=== PATIENT | female | born 1965 | race Caucasian/White ===

== ENCOUNTER 2024-02-21 08:00 | Emergency (ER) | payer MEDICARE, MEDICAID, SELFPAY ==
[2024-02-21 08:12] VITALS: BP 143/79; PULSE 57; RESP 17; TEMP 36.6; O2SAT 97; BMI 23.3
--- NOTE | 2024-02-21 08:28 | PD.EDWOUND ---
ED Wound/Laceration-RME/HPI General Chief Complaint: Wound/Laceration Stated Complaint: CHIN LAC Time Seen by Provider: 02/21/24 08:04 Source: patient Arrival date/time: 02/21/24 08:00 59-year-old female presents to the emergency department accompanied with caregiver for a slip and fall during shower. According to the caregiver the patient had a fall due to the water and landed on her chin causing a small laceration mid chin Related Data Home Medications ?Medication ?Instructions ?Recorded ?Confirmed divalproex 500 mg tablet,delayed 1,000 mg PO QDAY 09/15/18 08/11/20 release clozapine 200 mg tablet 200 mg PO QDAY 07/29/19 08/11/20 linaclotide 145 mcg capsule 145 mcg PO QDAY 07/29/19 08/11/20 (Linzess) docusate sodium 250 mg capsule 250 mg PO QDAY 08/11/20 08/11/20 (Stool Softener) oxybutynin chloride 5 mg tablet 5 mg PO TID 08/11/20 08/11/20 polyethylene glycol 3350 17 17 g PO QDAY 08/11/20 08/11/20 gram/dose oral powder Previous Rx's ?Medication ?Instructions ?Recorded acetaminophen 325 mg tablet (Mapap 650 mg (2 x 325 mg) PO Q4HR PRN 08/04/19 (acetaminophen)) Mild pain or fever > 101F #10 tabs Allergies Allergy/AdvReac Type Severity Reaction Status Date / Time No Known Allergies Allergy Verified 08/11/20 10:49 Review of Systems Review of Systems Systems Reviewed: All systems reviewed, normal except as documented Narrative Review of Systems: Gen: No fever, no chills, no weight loss EYES: No discharge, no visual changes, no pain HEENT: No ear pain, no congestion, no sore throat PULM: No shortness of breath, no cough, no congestion CV: No chest pain, no dyspnea on exertion, no palpitations GI: No nausea, no vomiting, no diarrhea, no pain, no constipation : No frequency, no urgency,? no dysuria Musc/skel: No joint pain, no back pain Skin: +laceration Psyc: No hallucinations, no depression Heme/Lymph: No easy bleeding or bruising tendencies Neuro: No weakness, no headache ED Exam Narrative Physical exam: GENERAL APPEARANCE: Well hydrated, well nourished, in no acute distress. VITALS: All vitals were reviewed and the pulse ox is 97% on room air which is normal according to my interpretation. HEENT: Normocephalic,+ 1 cm laceration to mid chin.EOMI, EACs are patent. There is no bulge or retraction. Throat without erythema or exudate. Moist oromucosa. No jaundice NECK: Supple, no JVD or bruits. CARDIOVASCULAR: Heart regular without S3-S4 or murmur. No rubs or gallops. LUNGS/CHEST: Clear to auscultation bilaterally. No rales, rhonchi, or wheezing. Normal inspection. ABDOMEN: Soft, nontender, with normal bowel sounds. No pulsatile masses. No rebound, rigidity, or guarding. No incarcerated hernia. Normal inspection and palpation. EXTREMITIES: Normal inspection and palpation. No edema, clubbing, or cyanosis. Intact CSM SKIN: Warm and dry without rashes. Normal inspection. MUSCULOSKELETAL: Normal inspection. No gross deformity, full ROM all extremities NEURO: Awake. Cranial nerves II through XII grossly intact. There are no other motor or sensory deficits noted. Course Quality Measures none Orders Category Date Time Status Set Up Suture Tray STAT Care 02/21/24 08:27 Active Wound Care NOW Care 02/21/24 08:27 Active Lidocaine 1% 20 ml [Xylocaine 1% 20 ML] Med 02/21/24 08:27 Discontinued 10 ml INFL X1 ONE Vital Signs Vital signs: Vital Signs Temperature 97.8 F 02/21/24 08:12 Pulse Rate 57 L 02/21/24 08:12 Respiratory Rate 17 02/21/24 08:12 Blood Pressure 143/79 H 02/21/24 08:12 Pulse Oximetry (%) 97 02/21/24 08:12 Oxygen Delivery Method Room Air 02/21/24 08:12 Procedures -ED Laceration Laceration 1: Site: face and other (chin) Size (cm): 1 Description: linear Depth: simple, single layer Local Anesthetic: lidocaine 1% Amount of anesthesia used (mL): 5 Pre-repair: irrigated extensively and deep structures intact Skin layer closed with: vicryl Size (cm): 4-0 Number of sutures: 3 Technique: simple, interrupted Wound / Laceration MDM Narrative MDM Narrative:: Patient's wounds cleaned x-rays. And repaired with 3 sutures patient tolerated his procedure well. Patient was appropriate normal mentation according to the caregiver. No further evaluation for CTs or x-ray patient acting normal. No syncope no head pain no neck pain. 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 Interpretation Summary: Not applicable Medications / Prescriptions Medications or Prescriptions considered but not ordered:: not applicable Medication administrations:: Medication Administration History Discontinued Medications Lidocaine HCl (Lidocaine Hcl 1% 20 Ml Vial) 10 ml INFL X1 ONE Stop: 02/21/24 08:28 Last Admin: 02/21/24 09:21 Dose: 10 ml Documented By: VG All medications administered and effective Consultations Consultation(s) initiated? (list below): No Diagnosis Wound Differential Diagnosis: laceration, abscess, abrasion and avulsion of skin Most likely diagnosis given after review of the tests above:: Chin laceration Admission Indicated Admission indicated?: not indicated Admission Request Was there a request for admission?: No Disposition Plan Disposition Plan: Discharge Discharge Attestation Discharge Attestation: The patient and all family members were given an opportunity to ask questions and understood the discharge instructions. Discharge instructions specifically effects, indications for sooner follow up or return to the emergency department, and the expected course of current diagnosis. Patient condition: Stable Discharge Plan Plan Patient Disposition: HOME (Self Care) Patient condition on transfer: Stable Prescriptions/Referrals Prescriptions/Med Rec: No Action divalproex 500 mg tablet,delayed release (DR/EC) 1,000 mg PO QDAY clozapine 200 mg Tablet 200 mg PO QDAY Linzess 145 mcg Capsule 145 mcg PO QDAY acetaminophen [Mapap (acetaminophen)] 325 mg Tablet 650 mg PO Q4HR PRN (Reason: Mild pain or fever > 101F) Qty: 10 0RF polyethylene glycol 3350 17 gram/dose powder 17 g PO QDAY docusate sodium [Stool Softener] 250 mg capsule 250 mg PO QDAY oxybutynin chloride 5 mg tablet 5 mg PO TID Problem List Clinical Impression: Contusion, Fall from slip, trip, or stumble, Chin laceration Patient/Caregiver Discharge Instructions Discharge Activity: activity as tolerated Education Materials: Preventing Falls: Staying Active, ED Laceration, Chin, Suture or Tape Additional Instructions: Please follow up with Primary Doctor in 7-10 day for suture removal. Please return to ER if theres is any sign of infection. Please keep wound clean and dry. Print Language: Turkish Stand Alone Forms: Bianca Award Info., Work/School Release, Patient Portal Info Letter PA/PROGRAM WRITER Supervising Physician PA/PROGRAM WRITER Supervising Physician: Dr Kaye
[2024-02-21] MEDS: LIDOCAINE HCL 1% 20 ML VIAL 10 ML INFL (09:21)
== END 2024-02-21 09:46 | disposition home or self-care (01) ==
LOC: SERX 09:52
PROVIDERS: Emergency Provider Emergency Medicine
DX: S01.81XA Laceration without foreign body of other part of head, initial encounter (principal); W01.0XXA Fall on same level from slipping, tripping and stumbling without subsequent striking against object, initial encounter
CPT/HCPCS: 12011; 99283; J3490

== ENCOUNTER 2024-05-26 11:26 | Emergency (ER) | payer MEDICARE, MEDICAID, SELFPAY ==
[2024-05-26 11:27] VITALS: BMI 26.6
--- NOTE | 2024-05-26 11:44 | XR_ITS ---
Examination: CT brain head without contrast. 2-D sagittal coronal reconstructions Date and time of exam:May 26, 2024 1224 hrs. Indications: Patient fell today with injury to the head, head pain CTDI: vol (mGy):40.7 DLP: (mGycm):804 Technique: Multiple CT axial sections of the brain have been obtained, 5 mm slice thickness. Contrast has not been administered. 2-D sagittal, coronal reconstructions have been obtained Low dose protocols were performed. One or more of the following dose reduction techniques were used; automated exposure control, adjustment of the mA and/or KV according to patient size, use of iterative reconstruction technique. Findings: No significant ventricular enlargement. Right frontal scalp hematoma Intra-axial or extra-axial hemorrhage density is not seen. No mass effect or midline shift Basal cisterns are not remarkable. Fourth ventricle is midline. Cranial vault intact. Impression: Negative for acute hemorrhage, mass effect or midline shift
[2024-05-26 11:58] VITALS: BP 135/74; PULSE 58; RESP 16; TEMP 36.7; O2SAT 97
--- NOTE | 2024-05-26 13:58 | PD.EDFALL ---
ED Fall Injury RME/HPI General Chief Complaint: Fall Stated Complaint: GLF; HEMATOMA R FOREHEAD; NO BT Time Seen by Provider: 05/26/24 11:32 Arrival date/time: 05/26/24 11:26 59-year-old female developmentally delayed presents emergency department today caregiver reports that the patient was in the bathroom and fell hitting the right side of her head patient obtained a hematoma to the right side of the forehead. Per caregiver patient is acting appropriately Limitations: no limitations Related Data Home Medications ?Medication ?Instructions ?Recorded ?Confirmed divalproex 500 mg tablet,delayed 1,000 mg PO QDAY 09/15/18 08/11/20 release clozapine 200 mg tablet 200 mg PO QDAY 07/29/19 08/11/20 linaclotide 145 mcg capsule 145 mcg PO QDAY 07/29/19 08/11/20 (Linzess) docusate sodium 250 mg capsule 250 mg PO QDAY 08/11/20 08/11/20 (Stool Softener) oxybutynin chloride 5 mg tablet 5 mg PO TID 08/11/20 08/11/20 polyethylene glycol 3350 17 17 g PO QDAY 08/11/20 08/11/20 gram/dose oral powder Previous Rx's ?Medication ?Instructions ?Recorded acetaminophen 325 mg tablet (Mapap 650 mg (2 x 325 mg) PO Q4HR PRN 08/04/19 (acetaminophen)) Mild pain or fever > 101F #10 tabs Allergies Allergy/AdvReac Type Severity Reaction Status Date / Time No Known Allergies Allergy Verified 05/26/24 11:29 Review of Systems Review of Systems Systems Reviewed: All systems reviewed, normal except as documented Constitutional Constitutional: Reports system reviewed and no additional complaints, except as documented, Denies fever(s) and Denies headache(s) Eyes Eyes: Reports system reviewed and no additional complaints, except as documented and Denies blurry vision ENT Ears, Nose, Mouth, and Throat: Reports system reviewed and no additional complaints, except as documented, Denies headache(s), Denies nasal congestion and Denies nasal discharge Cardiovascular Cardiovascular: Reports system reviewed and no additional complaints, except as documented, Denies chest pain and Denies dyspnea Respiratory Respiratory: Reports system reviewed and no additional complaints, except as documented, Denies chest congestion, Denies cough and Denies dyspnea Gastrointestinal Gastrointestinal: Reports system reviewed and no additional complaints, except as documented and Denies abdominal pain Integumentary/Breasts Skin/Breast: Reports system reviewed and no additional complaints, except as documented and Denies rash Neurologic Neurologic: Reports system reviewed and no additional complaints, except as documented, Reports as per HPI and Denies headache(s) Past Medical History Past Medical History NEUROLOGIC: Positive Neurological Disorders and Head Trauma; Negative Seizures CARDIAC: Negative Cardiac Disorders or Congestive Heart Failure RESPIRATORY: Negative Chronic Obstructive Pulmonary Disease (COPD) GASTROINTESTINAL: Positive Gastrointestinal Disorders GENITOURINARY: Negative Genitourinary Disorders or Renal Disease MUSCULOSKELETAL: Positive Musculoskeletal Disorders and Fractures ENT: Positive Head Trauma ENDOCRINE: Negative Endocrine Disorders, Diabetes Mellitus Type 1 or Diabetes Mellitus Type 2 HEMATOLOGIC: Negative Blood Disorders PSYCHO/SOCIAL: Positive Schizophrenia and Behavior Problems OTHER HISTORY: Positive Developmental Delay and Falls; Negative Hospitalization, Autoimmune Disease, Down Syndrome, Blood Transfusions, Anesthesia Reactions or Cancer Surgical History SURGICAL: Positive Open Reduction Internal Fixation and Hysterectomy Social History SMOKING STATUS: Never smoker SUBSTANCE USE: does not use ED Exam General Limitations: Present no limitations General appearance: Present alert and in no apparent distress Expanded Head Exam Head image:  1. Hematoma forehead Eye Eye exam: Present normal appearance, PERRL and EOMI ENT ENT exam: Present normal exam, normal oropharynx and mucous membranes moist Neck Neck exam: Present normal inspection, full ROM and trachea midline Chest Chest inspection: Present normal inspection and symmetric chest wall rise Respiratory Respiratory exam: Present normal lung sounds bilaterally Cardiovascular Cardiovascular exam: Present regular rate, normal rhythm and normal heart sounds Abdominal Exam Abdominal exam: Present soft and normal bowel sounds Extremities Exam Extremities exam: Present normal inspection and full ROM Back Exam Back exam: Present normal inspection and full ROM Neurological Exam Neurological exam: Present alert, oriented X3 and CN II-XII intact Psychiatric Psychiatric exam: Present normal affect and normal mood Skin Skin exam: Present warm, dry, intact and normal color Course Quality Measures none Orders Category Date Time Status CT head/brain wo con Stat Exams 05/26/24 11:44 Completed Vital Signs Vital signs: Vital Signs Temperature 98.1 F 05/26/24 11:58 Pulse Rate 58 L 05/26/24 11:58 Respiratory Rate 16 05/26/24 11:58 Blood Pressure 135/74 H 05/26/24 11:58 Pulse Oximetry (%) 97 05/26/24 11:58 Oxygen Delivery Method Room Air 02/17/25 11:58 O2 saturation 97% room air within normal limits Fall MDM Narrative MDM Narrative:: 59-year-old female developmentally delayed presents emergency department today caregiver reports that the patient was in the bathroom and fell hitting the right side of her head patient obtained a hematoma to the right side of the forehead. Per caregiver patient is acting appropriately On exam patient well-appearing patient does not appear ill or toxic in no acute distress patient walks with steady gait On exam patient does have large hematoma to the right side of her forehead CT scan of the head obtained no acute emergent findings noted Patient discharged home in no distress to follow-up with primary care doctor in the next 24 to 48 hours and for any worsening symptoms to return to the ER immediately Patient data External records reviewed:: [facility] previous records Clinical information provided by:: health advocate Social determinants that could affect healthcare access:: none Patient has the following chronic illnesses:: Developmental delay How is presenting disease/condition affected by chronic disease/condition?: exacerbated by Evaluation data The following diagnostics were reviewed and interpreted by me:: radiology exam(s) Lab and/or radiology exams considered but not ordered:: Radiology obtain Interpretation Summary: Reviewed by me Medications / Prescriptions Medications or Prescriptions considered but not ordered:: No meds Medication administrations:: No meds Consultations Consultation(s) initiated? (list below): No Diagnosis Fall Differential Diagnosis: syncope, dislocation of shoulder region, concussion with loss of consciousness and concussion without loss of consciousness Most likely diagnosis given after review of the tests above:: Closed head injury Admission Indicated Admission indicated?: not indicated Admission Request Was there a request for admission?: No Disposition Plan Disposition Plan: Discharge Discharge Attestation Discharge Attestation: The patient and all family members were given an opportunity to ask questions and understood the discharge instructions. Discharge instructions specifically effects, indications for sooner follow up or return to the emergency department, and the expected course of current diagnosis. Patient condition: Stable Discharge Plan Plan Patient Disposition: HOME (Self Care) Disposition Comment: Stable Prescriptions/Referrals Prescriptions/Med Rec: No Action divalproex 500 mg tablet,delayed release (DR/EC) 1,000 mg PO QDAY clozapine 200 mg Tablet 200 mg PO QDAY Linzess 145 mcg Capsule 145 mcg PO QDAY acetaminophen [Mapap (acetaminophen)] 325 mg Tablet 650 mg PO Q4HR PRN (Reason: Mild pain or fever > 101F) Qty: 10 0RF polyethylene glycol 3350 17 gram/dose powder 17 g PO QDAY docusate sodium [Stool Softener] 250 mg capsule 250 mg PO QDAY oxybutynin chloride 5 mg tablet 5 mg PO TID Referrals: Segun Bray MD [Primary Care Provider] - In 1 week Problem List Clinical Impression: CHI (closed head injury) Patient/Caregiver Discharge Instructions Additional Instructions: Please follow up with your primary care doctor in the next 24-48hrs for any worsening symptoms return here immediately Print Language: Palauan Stand Alone Forms: Bianca Award Info., Patient Portal Info Letter PA/PMP CERTIFIED PROJECT MANAGER Supervising Physician PA/PMP CERTIFIED PROJECT MANAGER Supervising Physician: Dr Kaye
== END 2024-05-26 14:03 | disposition home or self-care (01) ==
PROVIDERS: Emergency Provider Emergency Medicine; PCP Family Medicine
DX: S00.83XA Contusion of other part of head, initial encounter (principal); W19.XXXA Unspecified fall, initial encounter; Y92.002 Bathroom of unspecified non-institutional (private) residence as the place of occurrence of the external cause
CPT/HCPCS: 70450; 99284

== ENCOUNTER → 2024-05-28 | Outpatient (CLI) | payer MEDICARE, MEDICAID, SELFPAY ==
[2024-05-28 16:30] LABS: Basophils % (Auto) 1 % (0-2.5); Eosinophils # (Auto) 0.1 Thou/mm3 (0.0-0.5); Eosinophils % (Auto) 1 % (0-10); Hematocrit 41.3 % (36.0-46.0); Hemoglobin 13.8 g/dL (12.0-16.0); Immature Granulocytes % (Auto) 0 % (0-0); Immature Granulocytes Auto 0.01 Thou/mm3 (0.00-0.00); Lymphocytes # (Auto) 2.2 Thou/mm3 (1.0-4.8); Lymphocytes % (Auto) 43 % (10-50); Mean Corpuscular HGB Conc 33.4 g/dl (31.0-37.0); Mean Corpuscular Hemoglobin 28.3 pg (25.0-35.0); Mean Corpuscular Volume 85 fL (80-100); Monocytes # (Auto) 0.4 Thou/mm3 (0.0-0.8); Monocytes % (Auto) 7 % (0-12); Neutrophils # (Auto) 2.5 Thou/mm3 (1.8-7.7); Neutrophils % (Auto) 49 % (37-80); Nucleated Red Blood Cell % 0 /100 WBC (0); Platelet Count 207 Thou/mm3 (140-440); RDW Standard Deviation 42.8 fL (36.4-46.3); Red Blood Count 4.87 Miln/mm3 (4.00-5.20); White Blood Count 5.2 Thou/mm3 (3.6-11.0)
[2024-05-28 16:50] LABS: Alanine Aminotransferase 11 U/L (10-49); Albumin, Serum 3.9 gm/dL (3.5-5.0); Albumin/Globulin Ratio 1.3 (1.2-2.2); Alkaline Phosphatase 92 U/L (46-116); Anion Gap 9 (7-16); Aspartate Amino Transferase 20 U/L (0-34); BUN/Creatinine Ratio 29 Ratio (12-20); Bilirubin,Total 0.4 mg/dL (0.3-1.2); Blood Urea Nitrogen 23 mg/dL (9-23); Calcium 9.1 mg/dL (8.3-10.6); Calcium (Corrected) 9.2 mg/dL (8.5-10.1); Carbon Dioxide 29.9 mMol/L (20.0-31.0); Chloride 90 mMol/L (98-107); Creatinine (Component) 0.8 mg/dL (0.6-1.3); Glucose 52 mg/dL (74-106); Osmolality,Calculated 259 (275-295); Potassium 4.6 mMol/L (3.4-5.1); Sodium 129 mMol/L (136-145); Total Protein 6.9 gm/dL (5.7-8.2); eGFR > 60 See Note
[2024-06-02 07:02] LABS: Valporic Acid (Depak)* 99.8 mg/L (50.0-100.0)
== END | disposition home or self-care (01) ==
LOC: SLDO 13:44
PROVIDERS: PCP Family Medicine; Referring Provider Family Medicine; Visit Provider Family Medicine
DX: F25.0 Schizoaffective disorder, bipolar type (principal)
CPT/HCPCS: 36415; 80053; 80164; 85025

== ENCOUNTER 2024-07-01 15:44 | Emergency (ER) | payer MEDICARE, MEDICAID, SELFPAY ==
[2024-07-01 15:50] VITALS: BP 165/84; PULSE 98; RESP 16; TEMP 36.7; O2SAT 100; BMI 18.3
--- NOTE | 2024-07-01 16:01 | XR_ITS ---
Examination: CT brain head without contrast. 2-D sagittal coronal reconstructions Date and time of exam:July 01, 2024 at 1713 hours Comparison May 26, 2024 INDICATIONS: Ground-level fall today with injury to head, head pain CTDI: vol (mGy):41.5 DLP: (mGycm):858 Technique: Multiple CT axial sections of the brain have been obtained, 5 mm slice thickness. Contrast has not been administered. 2-D sagittal, coronal reconstructions have been obtained Low dose protocols were performed. One or more of the following dose reduction techniques were used; automated exposure control, adjustment of the mA and/or KV according to patient size, use of iterative reconstruction technique. Findings: No significant ventricular enlargement. Intra-axial or extra-axial hemorrhage density is not seen. No mass effect or midline shift Basal cisterns are not remarkable. Fourth ventricle is midline. Cranial vault intact. Right frontal and right parietal scalp hematomas Impression: Negative for acute hemorrhage, mass effect or midline shift
--- NOTE | 2024-07-01 16:01 | XR_ITS ---
Examination: CT cervical spine without contrast 2-D sagittal reconstructions 2-D coronal reconstructions 3-D reconstructions. Exam date and time:July 01, 2024 1713 hours COMPARISON: February 01, 2024 INDICATIONS: Ground-level fall today with injury to the neck, neck pain CTDI:vol (mGy) 7.15 DLP: (mGycm) 139 Technique: Multiple 2 mm axial sections of the cervical spine have been obtained. The coronal and sagittal reconstructions have been obtained. 3-D reconstructions have been obtained. Low dose protocols were performed. One or more of the following dose reduction techniques were used; automated exposure control, adjustment of the mA and/or KV according to patient size, use of iterative reconstruction technique. Findings: Axial sections demonstrate intact base of the skull. C1 exhibit satisfactory relationship to the odontoid. No acute cervical vertebral body fracture seen. Alignment posterior spinous processes satisfactory. Impression: No acute cervical fracture.
--- NOTE | 2024-07-01 16:02 | PD.EDFALL ---
ED Fall Injury RME/HPI General Chief Complaint: Fall Stated Complaint: GROUND LEVEL FALL Time Seen by Provider: 07/01/24 16:01 Arrival date/time: 07/01/24 15:44 RME / HPI RME / HPI Narrative: DR. LOPEZ MAIN ED EVALUATION: 59 year old female with past medical history significant for developmental delay with GCS 14 baseline, schizophrenia, behavior problems, and a hysterectomy presents to the Emergency Department [facility] from [facility] with complaint of a ground-level fall prior to arrival. Patient cannot provide history but is bleeding from the right scalp area. EMS denies any loss of consciousness. EMS states that staff at [facility] also reported a previous fall but unknown when that took place. EMS deny any blood thinners. Related Data Home Medications ?Medication ?Instructions ?Recorded ?Confirmed divalproex 500 mg tablet,delayed 1,000 mg PO QDAY 09/15/18 08/11/20 release clozapine 200 mg tablet 200 mg PO QDAY 07/29/19 08/11/20 linaclotide 145 mcg capsule 145 mcg PO QDAY 07/29/19 08/11/20 (Linzess) docusate sodium 250 mg capsule 250 mg PO QDAY 08/11/20 08/11/20 (Stool Softener) oxybutynin chloride 5 mg tablet 5 mg PO TID 08/11/20 08/11/20 polyethylene glycol 3350 17 17 g PO QDAY 08/11/20 08/11/20 gram/dose oral powder Previous Rx's ?Medication ?Instructions ?Recorded acetaminophen 325 mg tablet (Mapap 650 mg (2 x 325 mg) PO Q4HR PRN 08/04/19 (acetaminophen)) Mild pain or fever > 101F #10 tabs Allergies Allergy/AdvReac Type Severity Reaction Status Date / Time No Known Allergies Allergy Verified 05/26/24 11:29 Review of Systems Review of Systems ROS Unobtainable: unobtainable due to medical condition Past Medical History Past Medical History NEUROLOGIC: Positive Neurological Disorders and Head Trauma GASTROINTESTINAL: Positive Gastrointestinal Disorders MUSCULOSKELETAL: Positive Musculoskeletal Disorders and Fractures ENT: Positive Head Trauma PSYCHO/SOCIAL: Positive Schizophrenia and Behavior Problems OTHER HISTORY: Positive Developmental Delay and Falls Surgical History SURGICAL: Positive Open Reduction Internal Fixation (right ankle) and Hysterectomy Social History SMOKING STATUS: Never smoker SUBSTANCE USE: does not use ALCOHOL: Never ED Exam Narrative Physical exam: GENERAL APPEARANCE: At baseline, GCS of 14 and cannot give any information, generally well-appearing. HEENT: Patient has a 3 cm right temporal-parietal laceration with active bleeding. Patient also had a right frontal contusion that is old, yellowish color. EOMI, clear conjunctiva, oropharynx clear. NECK: Supple without lymphadenopathy. No stiffness or restricted ROM. HEART: Normal rate and regular rhythm, normal S1/S1, no m/r/g LUNGS: CTAB, moving air well. No crackles or wheezes are heard. ABDOMEN: Soft, nontender, nondistended with good bowel sounds heard. BACK: No midline C/T/L spine pain or deformity, No CVAT, no obvious deformity. EXTREMITIES: Without cyanosis, clubbing or edema. MUSCULOSKELETAL: FROM of all major joints, no chest tenderness NEUROLOGICAL: At baseline, GCS of 14. Skin: Warm and dry without any rash. Course Quality Measures none Orders Category Date Time Status CT cervical spine wo con Stat Exams 07/01/24 16:[address] head/brain wo con Stat Exams 07/01/24 16:01 Completed Vital Signs Vital signs: Vital Signs Temperature 98.0 F 07/01/24 15:50 Pulse Rate 98 07/01/24 15:50 Respiratory Rate 16 07/01/24 15:50 Blood Pressure 165/84 H 07/01/24 15:50 Pulse Oximetry (%) 100 07/01/24 15:50 Oxygen Delivery Method Room Air 07/01/24 15:50 SpO2 100% on room air, patient is not hypoxic Fall MDM Narrative MDM Narrative:: Ms. Santos is a history of dementia presents from care home after he found down with head injury. She is not on blood thinners. She has a small laceration to her right parietal scalp that was amenable to ray. With the baseline dementia formal acute versus chronic neurologic deficits are limited therefore head CT and C-spine CT were done to assess for intracranial hemorrhage, fracture, which returned within normal limits. I reviewed the radiology interpretation and agree. Government Affairs Manager was here and notes that patient is at her baseline and was discharged in stable condition under the caretakers supervision Milana Alvarez am scribing for and in the presence of Dr. Lopez. Patient data External records reviewed:: EMS form Clinical information provided by:: EMS Social determinants that could affect healthcare access:: housing ([facility]) Patient has the following chronic illnesses:: developmental delay with GCS 14 baseline, schizophrenia, behavior problems, and a hysterectomy How is presenting disease/condition affected by chronic disease/condition?: uneffected by Evaluation data The following diagnostics were reviewed and interpreted by me:: radiology exam(s) Lab and/or radiology exams considered but not ordered:: none Interpretation Summary: As per narrative Medications / Prescriptions Medications or Prescriptions considered but not ordered:: none Medication administrations:: see above if any Consultations Consultation(s) initiated? (list below): No Diagnosis Fall Differential Diagnosis: concussion without loss of consciousness and other (scalp laceration, scalp contusion) Most likely diagnosis given after review of the tests above:: See below Admission Indicated Admission indicated?: not indicated Explain why admission is indicated or not indicated:: As per narrative Admission Request Was there a request for admission?: No Disposition Plan Disposition Plan: Discharge Discharge Attestation Discharge Attestation: The patient and facility executive officer were given an opportunity to ask questions and understood the discharge instructions. Discharge instructions specifically effects, indications for sooner follow up or return to the emergency department, and the expected course of current diagnosis. Patient condition: Stable Discharge Plan Plan Patient Disposition: HOME (Self Care) Prescriptions/Referrals Prescriptions/Med Rec: No Action divalproex 500 mg tablet,delayed release (DR/EC) 1,000 mg PO QDAY clozapine 200 mg Tablet 200 mg PO QDAY Linzess 145 mcg Capsule 145 mcg PO QDAY acetaminophen [Mapap (acetaminophen)] 325 mg Tablet 650 mg PO Q4HR PRN (Reason: Mild pain or fever > 101F) Qty: 10 0RF polyethylene glycol 3350 17 gram/dose powder 17 g PO QDAY docusate sodium [Stool Softener] 250 mg capsule 250 mg PO QDAY oxybutynin chloride 5 mg tablet 5 mg PO TID Problem List Clinical Impression: Closed head injury, Laceration of scalp Patient/Caregiver Discharge Instructions Education Materials: ED Head Injury (Adult), ED Laceration Scalp Sutures or ... Additional Instructions: Follow-up with your facility provider as needed. You can return to the emergency department sooner symptoms worsen or if he notes any new, concerning issues. Print Language: Yi Stand Alone Forms: Bianca Award Info., Work/School Release, Patient Portal Info Letter
[2024-07-01 16:11] VITALS: PULSE 62; RESP 16; O2SAT 98
--- NOTE | 2024-07-01 16:59 | PC.NURSE ---
Patient not participating in nursing assessments
[2024-07-01 17:17] VITALS: PULSE 86; RESP 19; O2SAT 97
[2024-07-01 18:15] VITALS: BP 159/80; PULSE 56; RESP 18; TEMP 36.6; O2SAT 100
== END 2024-07-01 19:52 | disposition home or self-care (01) ==
LOC: SERX 17:56
PROVIDERS: Emergency Provider Emergency Medicine; PCP Family Medicine
DX: S01.01XA Laceration without foreign body of scalp, initial encounter (principal); W18.30XA Fall on same level, unspecified, initial encounter; F20.9 Schizophrenia, unspecified; F03.90 Unspecified dementia, unspecified severity, without behavioral disturbance, psychotic disturbance, mood disturbance, and anxiety; M54.2 Cervicalgia
CPT/HCPCS: 70450; 72125; 99284

== ENCOUNTER 2024-07-23 20:38 | Inpatient (IN) | payer MEDICARE, MEDICAID, SELFPAY ==
[2024-07-23] VITALS (34 sets, daily range): BP systolic 58–193; BP diastolic 42–143; PULSE 54–93; RESP 14–24; TEMP 36.2; O2SAT 76–100; BMI 22.3
--- NOTE | 2024-07-23 20:43 | PC.NURSE ---
stroke consult Case # [id number]
[2024-07-23] MEDS: SUCCINYLCHOLINE INJ 20 MG/ML VIAL 10 ML 100 MG IV (20:48)
[2024-07-23] MEDS: ETOMIDATE INJ 2 MG/ML VIAL 10 ML 20 MG IVP (20:48)
--- NOTE | 2024-07-23 20:49 | PD.EDAMS ---
Altered Mental Status RME/HPI General Chief Complaint: Altered Mental Status Stated Complaint: ALTERED UNCONCIOUS Time Seen by Provider: 07/23/24 20:50 Arrival date/time: 07/23/24 20:38 RME / HPI RME / HPI narrative: This section includes all my notes and documentations, including HPI, PE, and ED course. Abbe Kent MD HPI: 59yo female with a history of schizoeffective disorder, ADHD, mild retardation BIBA from [facility] Home presents to the ED for a chief complaint of AMS. Patient was seen by me immediately upon arrival at 2036. Stroke alert initiated at 2039. Patient was intubated at 2047. Per EMS, patient's LKWT was at 1900, reporting the patient started having a headache and was dizzy. EMS states the patient started becoming altered en route and was saturating at 76% on room air, so they started bagging her. Blood sugar en route was 172. Blood pressure en route was 205/143. Unable to obtain history from the patient due to decreased mental status. ROS: Unobtainable from the patient due to current clinical condition. Physical Exam: General: Patient is not responsive. Eyes don't open. No verbal sound. Equivocal localizing to pain. High BP noted. Eyes: Conjunctivae and lids clear. PERRL. EOMI. ENT: No signs of head trauma. Neck: No tenderness. Heart: RRR. Lungs: Tachypnea noted. Mildly decreased air movement with bilateral rails. Abdomen: Soft. Skin: Warm and dry. Neuro: GCS 7. I reviewed all diagnostic test results. My interpretation of the EKG is sinus rhythm with no acute ST?T changes. My interpretation of the chest x-ray is bilateral infiltrates. My review of the CT head report is NAD. My review of the head/neck CTA report is NAD. Blood tests and urine tests remarkable for WBC 13.3, Na 125. At this point, diagnoses include AMS, pneumonia, hyponatremia. Due to AMS and low GCS, made decision to intubate the patient, see procedure note. Used etomidate and succinylcholine on rocuronium and propofol drip. Treatment here also included labetalol, Zofran, NS, and vancomycin. I discussed the case with our ICU team.? About the presentation and exam and diagnostics and treatments here.? And need of further care in the hospital.? Will accept the patient. Abbe Kent MD Related Data Home Medications ?Medication ?Instructions ?Recorded ?Confirmed divalproex 500 mg tablet,delayed 1,000 mg PO QDAY 09/15/18 08/11/20 release clozapine 200 mg tablet 200 mg PO QDAY 07/29/19 08/11/20 linaclotide 145 mcg capsule 145 mcg PO QDAY 07/29/19 08/11/20 (Linzess) docusate sodium 250 mg capsule 250 mg PO QDAY 08/11/20 08/11/20 (Stool Softener) oxybutynin chloride 5 mg tablet 5 mg PO TID 08/11/20 08/11/20 polyethylene glycol 3350 17 17 g PO QDAY 08/11/20 08/11/20 gram/dose oral powder Previous Rx's ?Medication ?Instructions ?Recorded acetaminophen 325 mg tablet (Mapap 650 mg (2 x 325 mg) PO Q4HR PRN 08/04/19 (acetaminophen)) Mild pain or fever > 101F #10 tabs Allergies Allergy/AdvReac Type Severity Reaction Status Date / Time No Known Allergies Allergy Verified 05/26/24 11:29 Review of Systems Review of Systems ROS Unobtainable: unobtainable due to mental status and unobtainable due to medical condition Past Medical History Past Medical History NEUROLOGIC: Positive Neurological Disorders and Head Trauma; Negative Seizures CARDIAC: Negative Cardiac Disorders or Congestive Heart Failure RESPIRATORY: Negative Chronic Obstructive Pulmonary Disease (COPD) GASTROINTESTINAL: Positive Gastrointestinal Disorders GENITOURINARY: Negative Genitourinary Disorders or Renal Disease MUSCULOSKELETAL: Positive Musculoskeletal Disorders and Fractures ENT: Positive Head Trauma ENDOCRINE: Negative Endocrine Disorders, Diabetes Mellitus Type 1 or Diabetes Mellitus Type 2 HEMATOLOGIC: Negative Blood Disorders PSYCHO/SOCIAL: Positive Schizophrenia, Behavior Problems (schizoaffective disorder and ADHD) and Attention Deficit Hyperactivity Disorder OTHER HISTORY: Positive Developmental Delay and Falls; Negative Hospitalization, Autoimmune Disease, Down Syndrome, Blood Transfusions, Anesthesia Reactions or Cancer Surgical History SURGICAL: Positive Open Reduction Internal Fixation and Hysterectomy Social History SMOKING STATUS: Never smoker SUBSTANCE USE: does not use ED Exam Narrative Physical exam: As noted in HPI. Course Course Course Narrative: CXR is ordered for post intubation. Quality Measures none Orders Category Date Time Status Bedside Blood Glucose NOW Care 07/23/24 20:52 Completed Bedside COVID-19 Antigen Test NOW Care 07/23/24 20:50 Completed Bedside Influenza A&B Antigen Test NOW Care 07/23/24 20:50 Completed COVID-19 Screening Questionnaire NOW Care 07/23/24 22:58 Active Stepdown Nurse NOW Care 07/23/24 20:52 Completed Continuous Pulse Oximetry NOW Care 07/23/24 20:52 Completed Decision to Admit X1 Care 07/23/24 22:58 Completed EKG (ED ONLY) *Do not use* NOW Care 07/23/24 20:51 Completed EKG (ED ONLY) *Do not use* NOW Care 07/23/24 20:52 Completed Fingerstick [Bedside Blood Glucose] NOW Care 07/23/24 20:43 Active Sepulveda to [place] Routine Care 07/23/24 20:50 Ordered Insert IV NOW Care 07/23/24 20:52 Active Insert NG / OG tube NOW Care 07/23/24 20:50 Active Intubation NOW Care 07/23/24 20:45 Completed NIH Stroke Scale now Care 07/23/24 20:52 Active NPO NOW Care 07/23/24 20:52 Active Nurse Swallow Screen x1 Care 07/23/24 20:52 Active Saline [Insert IV] NOW Care 07/23/24 20:50 Active Consult to Neurology / Tele-Neurology Routine Cons 07/23/24 20:[address] angio stroke protocol Stat Exams 07/23/24 20:[address] stroke protocol Stat Exams 07/23/24 20:52 Completed EKG (ED Only) Stat Exams 07/23/24 20:51 Ordered EKG (ED Only) Stat Exams 07/23/24 20:52 Ordered XR abdomen 1V Stat Exams 07/23/24 22:49 Completed XR chest 1V post procedure Stat Exams 07/23/24 20:52 Completed XR chest 1V post procedure Stat Exams 07/23/24 22:47 Completed Acetaminophen Stat Lab 07/23/24 20:45 Completed Alcohol, Blood Medical Stat Lab 07/23/24 20:45 Completed Ammonia Stat Lab 07/23/24 22:48 Completed Arterial Blood Gas Stat Lab 07/23/24 23:07 Completed B-Type Natriuretic Peptide Stat Lab 07/23/24 20:45 Completed Blood Culture (Lab) Stat Lab 07/23/24 20:45 Received CBC Stat Lab 07/23/24 20:45 Completed CK [Creatine Kinase] Stat Lab 07/23/24 20:45 Completed CRP [C-Reactive Protein] Stat Lab 07/23/24 20:45 Completed Comprehensive Metabolic Panel Stat Lab 07/23/24 20:45 Completed D-Dimer Stat Lab 07/23/24 20:45 Completed Drug Screen,Urine Stat Lab 07/23/24 21:45 Completed ESR [Sed Rate (ESR)] Stat Lab 07/23/24 20:45 Completed Free T4 (Free Thyroxine) Stat Lab 07/23/24 20:45 Completed Lactate (Lactic Acid) Stat Lab 07/23/24 20:45 Completed Magnesium Stat Lab 07/23/24 20:45 Completed Partial Thromboplastin Time Stat Lab 07/23/24 20:45 Completed Path Review Blood Smear Stat Lab 07/23/24 20:45 Completed Procalcitonin Stat Lab 07/23/24 20:45 Completed Prothrombin Time with INR Stat Lab 07/23/24 20:45 Completed Sputum Culture and Gram Stain Stat Lab 07/23/24 21:37 Ordered TSH [Thyroid Stimulating Hormone] Stat Lab 07/23/24 20:45 Completed Troponin I Stat Lab 07/23/24 20:45 Completed Urinalysis Stat Lab 07/23/24 21:45 Completed Urine Culture Stat Lab 07/23/24 21:45 Received Valporic Acid (Depak)* Stat Lab 07/23/24 22:24 Ordered Cefepime Inj [Maxipime Inj] 2 gm Med 07/23/24 22:06 Discontinued SODIUM CHLORIDE 0.9% (Popper) [Ns 0.9% (P)] 50 ml IV X1 Etomidate Inj [Amidate Inj] Med 07/23/24 20:41 Discontinued 20 mg .ROUTE .STK-MED ONE Etomidate Inj [Amidate Inj] Med 07/23/24 20:50 Discontinued 20 mg IVP X1 ONE Labetalol IV [Trandate IV] Med 07/23/24 20:52 Active 10 mg IV Q15M PRN Labetalol IV [Trandate IV] Med 07/23/24 20:44 Discontinued 10 mg IVP X1 ONE Labetalol IV [Trandate IV] Med 07/23/24 20:46 Discontinued 100 mg .ROUTE .STK-MED ONE Ondansetron Inj [Zofran Inj] Med 07/23/24 20:52 Discontinued 4 mg IV Q4HR PRN Propofol 1,000 mg Ivpb [Diprivan Ivpb] Med 07/23/24 20:51 Discontinued 1,000 mg in 100 ml IV 5 mcg/kg/min Rocuronium Inj [Zemuron Inj] Med 07/23/24 20:50 Discontinued 50 mg IVP X1 ONE Sodium Chloride 0.9% 1000 ml [Ns] 1,000 ml Med 07/23/24 21:20 Discontinued IV 999 mls/hr Sodium Chloride 0.9% 1000 ml [Ns] 1,000 ml Med 07/23/24 21:00 Active IV Q10H Sodium Chloride Rt Amber 10% [NS Rt Amber 10%] Med 07/23/24 21:36 Discontinued 5 ml INH X1 ONE Succinylcholine Inj [Anectine Inj] Med 07/23/24 20:50 Discontinued 100 mg IV X1 ONE Succinylcholine Inj [Anectine Inj] Med 07/23/24 20:42 Discontinued 200 mg .ROUTE .STK-MED ONE Vancomycin Inj 1,000 mg Med 07/23/24 22:15 Discontinued Sodium Chloride 0.9% 250 ml [Ns] 250 ml IV X1 Mechanical [Volume Ventilator] Stat RT 07/23/24 Active Oxygen Delivery NOW RT 07/23/24 20:52 Active Sputum Induction PRN RT 07/23/24 21:45 Ordered Vital Signs Vital signs: Vital Signs Temperature 97.2 F 07/23/24 20:40 Pulse Rate 93 07/23/24 20:40 Respiratory Rate 21 H 07/23/24 20:40 Blood Pressure 193/130 H 07/23/24 20:40 Pulse Oximetry (%) 99 07/23/24 20:40 Oxygen Delivery Method Ambu-Bag 07/23/24 20:40 Procedures -ED Intubation Time out performed: Yes (performed emergently) sedative: Etomidate Mg Given: 20 paralytic: Succinylcholine Mg Given: 100 Laryngoscope: Luc ET Tube Size: 7.5 ET Tube Uncuffed: No Tube Secured Depth (cm): 22 Tube Secured Location: teeth Tube Placement Confirmation: visualized tube passing through cords, equal breath sounds bilaterally, no breath sounds over epigastrium and confirmation by capnometry Patient Tolerated Procedure: well and no complications Intubation Complications: none Altered Mental Status MDM Narrative MDM Narrative:: Scribe Attestation: 07/23/24 Taylor Borrero am scribing for and in the presence of Dr. Kent. Patient data External records reviewed:: [facility] previous records (Per chart review, patient was seen here on 07/01/24 for a closed head injury.) Clinical information provided by:: EMS Social determinants that could affect healthcare access:: none Patient has the following chronic illnesses:: schizoeffective disorder, ADHD, mild retardation How is presenting disease/condition affected by chronic disease/condition?: uneffected by Evaluation data The following diagnostics were reviewed and interpreted by me:: lab results, radiology exam(s) and EKG tracing(s) Lab and/or radiology exams considered but not ordered:: none Interpretation Summary: AMS, pneumonia, hyponatremia Medications / Prescriptions Medications or Prescriptions considered but not ordered:: none Medication administrations:: Medication Administration History Acetaminophen (Acetaminophen Supp 650 Mg Supp) 650 mg IA Q6HR PRN PRN Reason: [id number] Stop: 08/22/24 23:35 Aspirin (Aspirin 81 Mg Chew) 81 mg PO QDAY [facility] Stop: 08/23/24 08:59 Famotidine (Famotidine Inj 10 Mg/Ml Vial 2 Ml) 20 mg IVP Q12HR [facility] Stop: 08/23/24 08:59 Heparin Sodium (Porcine) (Heparin Sod Inj 5000 Unit/Ml Vial) 5,000 unit SC Q8HR TANYA Stop: 08/07/24 05:59 Sodium Chloride (Ns) 1,000 mls @ 100 mls/hr IV Q10H [facility] Stop: 08/22/24 20:59 Last Admin: 07/23/24 21:55 Dose: 100 mls/hr Documented By: EE Fentanyl Citrate (Sublimaze Inj 2,500 Mcg/250 Ml Bag) 2,500 mcg in 250 mls @ 2.5 mls/hr IV .Q24H PRN; Protocol PRN Reason: PER PROTOCOL Stop: 07/28/24 23:37 Piperacillin/Tazobactam/Dextrose (Zosyn) 3.375 gm in 50 mls @ 100 mls/hr IV Q8HR TANYA Stop: 07/30/24 23:52 Last Infusion: 07/24/24 01:40 Dose: Infused Documented By: Admin: 07/24/24 01:07 Dose: 100 mls/hr Documented By: SF Propofol (Diprivan Ivpb) 1,000 mg in 100 mls @ 1.885 mls/hr IV .Q24H PRN; Protocol PRN Reason: Per Protocol Stop: 08/22/24 20:50 Last Admin: 07/24/24 02:00 Dose: 20 mcg/kg/min, 7.539 mls/hr Documented By: KASH Co-signed By: JAZMIN Labetalol HCl (Labetalol Inj 5 Mg/Ml Vial 20 Ml) 10 mg IV Q15M PRN PRN Reason: HYPER Ondansetron HCl (Ondansetron Inj 2 Mg/Ml Inj 2 Ml) 4 mg IV Q4HR PRN PRN Reason: NAUSEA OR VOMITING Stop: 08/22/24 23:43 Discontinued Medications Etomidate (Etomidate Inj 2 Mg/Ml Vial 10 Ml) Confirm Administered Dose 20 mg .ROUTE .STK-MED ONE Stop: 07/23/24 20:42 Last Admin: 07/23/24 21:06 Dose: Not Given Documented By: KASH Non-Admin Reason: Override Medication Etomidate (Etomidate Inj 2 Mg/Ml Vial 10 Ml) 20 mg IVP X1 ONE Stop: 07/23/24 20:51 Last Admin: 07/23/24 20:48 Dose: 20 mg Documented By: KASH Propofol (Diprivan Ivpb) 1,000 mg in 100 mls @ 1.885 mls/hr IV .Q24H PRN; Protocol PRN Reason: Per Protocol Stop: 08/22/24 20:50 Last Titration: 07/23/24 22:10 Dose: 20 mcg/kg/min, 7.539 mls/hr Documented By: Titration: 07/23/24 22:05 Dose: 15 mcg/kg/min, 5.654 mls/hr Documented By: Titration: 07/23/24 22:00 Dose: 10 mcg/kg/min, 3.769 mls/hr Documented By: Admin: 07/23/24 21:49 Dose: 5 mcg/kg/min, 1.885 mls/hr Documented By: JAZMIN Co-signed By: ALEX Sodium Chloride (Ns) 1,000 mls @ 999 mls/hr IV .Q1H1M ONE Stop: 07/23/24 22:20 Last Infusion: 07/23/24 22:49 Dose: Infused Documented By: Admin: 07/23/24 21:00 Dose: 999 mls/hr Documented By: KASH Cefepime HCl 2 gm/ Sodium (Chloride) 50 mls @ 100 mls/hr IV X1 ONE Stop: 07/23/24 22:35 Last Infusion: 07/23/24 23:50 Dose: Infused Documented By: Admin: 07/23/24 22:41 Dose: 100 mls/hr Documented By: KASH Vancomycin HCl 1,000 mg/ (Sodium Chloride) 250 mls @ 166.667 mls/hr IV X1 ONE Stop: 07/23/24 23:44 Last Infusion: 07/24/24 00:19 Dose: Infused Documented By: Admin: 07/23/24 22:42 Dose: 166.667 mls/hr Documented By: KASH Labetalol HCl (Labetalol Inj 5 Mg/Ml Vial 20 Ml) 10 mg IVP X1 ONE Stop: 07/23/24 20:45 Last Admin: 07/23/24 20:50 Dose: 10 mg Documented By: KASH Labetalol HCl (Labetalol Inj 5 Mg/Ml Vial 20 Ml) Confirm Administered Dose 100 mg .ROUTE .STK-MED ONE Stop: 07/23/24 20:47 Last Admin: 07/23/24 21:10 Dose: Not Given Documented By: KASH Non-Admin Reason: Override Medication Ondansetron HCl (Ondansetron Inj 2 Mg/Ml Inj 2 Ml) 4 mg IV Q4HR PRN PRN Reason: NAUSEA OR VOMITING Stop: 08/22/24 20:51 Rocuronium [place] (Rocuronium Inj 10 Mg/Ml Vial 10 Ml) 50 mg IVP X1 ONE Stop: 07/23/24 20:51 Last Admin: 07/23/24 22:47 Dose: 50 mg Documented By: KASH Co-signed By: JAZMIN Sodium Chloride (Sodium Chloride Rt 10% 15 Ml Nebu) 5 ml INH X1 ONE Stop: 07/23/24 21:37 Succinylcholine Chloride (Succinylcholine Inj 20 Mg/Ml Vial 10 Ml) Confirm Administered Dose 200 mg .ROUTE .STK-MED ONE Stop: 07/23/24 20:43 Last Admin: 07/23/24 21:06 Dose: Not Given Documented By: EE Non-Admin Reason: Override Medication Succinylcholine Chloride (Succinylcholine Inj 20 Mg/Ml Vial 10 Ml) 100 mg IV X1 ONE Stop: 07/23/24 20:51 Last Admin: 07/23/24 20:48 Dose: 100 mg Documented By: KASH Due to AMS and low GCS, made decision to intubate the patient, see procedure note. Used etomidate and succinylcholine on rocuronium and propofol drip. Treatment here also included labetalol, Zofran, NS, and vancomycin. Consultations Consultation(s) initiated? (list below): No Time: 22:02 Diagnosis Differential diagnosis altered mental status: alcoholic intoxication, altered mental status, delirium, dementia, hypoglycemia, hyponatremia, subarachnoid hemorrhage and sepsis Most likely diagnosis given after review of the tests above:: AMS of unclear etiology, pneumonia, hyponatremia Admission Indicated Admission indicated?: indicated Explain why admission is indicated or not indicated:: AMS of unclear etiology needing intubation, pneumonia, hyponatremia Admission Request Was there a request for admission?: Yes Admission Attestation Admission request attestation: Discussed case with our ICU service regarding admission. Discussed patients ED course, exam findings, labs, and radiology results. They agreed to accept the patient for admission. Disposition Plan Disposition Plan: Admit Critical Care Time Critical Care Time Critical Care Time: Yes Total Critical Care Time (min.): 50 Attestation: Due to a high probability of clinically significant, life threatening deterioration, the patient required my highest level of preparedness to intervene emergently and I personally spent this critical care time directly and personally managing the patient. This critical care time included obtaining a history; examining the patient; ordering and review of studies; arranging urgent treatment with development of a management plan; evaluation of patient's response to treatment; frequent reassessment; and discussions with family and other providers. It was exclusive of separately billable procedures and treating other patients and teaching time. Abbe Kent MD Discharge Plan Plan Patient Disposition: Admit Acute Care w/in Hospital Problem List Clinical Impression: AMS (altered mental status), Respiratory failure, Pneumonia, Hyponatremia
[2024-07-23] MEDS: LABETALOL INJ 5 MG/ML VIAL 20 ML 10 MG IVP (20:50)
--- NOTE | 2024-07-23 20:52 | XR_ITS ---
Examination: AP chest single view Technique one AP portable semiupright chest single view Exam date and time: 05/25/2024 2107 hrs. Comparison 10/26/2013 Indications: Hypoxic respiratory failure today, postintubation Findings: Extensive bilateral pneumonia Normal heart size Orogastric tube tip distal third of the esophagus Endotracheal tube tip 4.2 cm above meño Impression: Extensive bilateral pneumonia Advance the orogastric tube 10 cm
--- NOTE | 2024-07-23 20:52 | XR_ITS ---
Examination: CTA carotids with intravenous contrast CTA brain, head with intravenous contrast. 2-D sagittal, coronal reconstructions. 3-D reconstructions. Exam date and time: Stroke alert, onset focal neurologic deficit today Exam date and time: July 24, 2024 2131 hrs. CTDI: vol (mGy) 36.4 DLP: (mGycm) 435 Technique: Multiple CTA axial brain, head carotid images post intravenous contrast injection 75 cc, [id number]. 2-D sagittal, coronal reconstructions. 3-D reconstructions, 3-D post processing including vascular maximum intensity projection images. Low dose protocols were performed. One or more of the following dose reduction techniques were used; automated exposure control, adjustment of the mA and/or KV according to patient size, use of iterative reconstruction technique. Findings: No significant common carotid carotid bifurcation or internal carotid artery stenoses Codominant vertebral arteries with no critical stenoses Extensive bilateral edema and/or pneumonia at the lung pink No large vessel occlusions middle cerebral anterior cerebral arteries 90% stenosis P2 segment right posterior cerebral artery Impression: No significant neck arterial stenoses No cerebral large vessel arterial occlusions 90% stenosis P2 segment right posterior cerebral artery
--- NOTE | 2024-07-23 20:52 | XR_ITS ---
Examination: CT brain head without contrast. 2-D sagittal coronal reconstructions Date and time of exam:July 24, 1999 2521 2 hours Indications: Stroke alert, onset altered mental status today CTDI: vol (mGy):47.2 DLP: (mGycm):909 Technique: Multiple CT axial sections of the brain have been obtained, 5 mm slice thickness. Contrast has not been administered. 2-D sagittal, coronal reconstructions have been obtained Low dose protocols were performed. One or more of the following dose reduction techniques were used; automated exposure control, adjustment of the mA and/or KV according to patient size, use of iterative reconstruction technique. Findings: No significant ventricular enlargement. Intra-axial or extra-axial hemorrhage density is not seen. No mass effect or midline shift Basal cisterns are not remarkable. Fourth ventricle is midline. Cranial vault intact. Impression: Negative for acute hemorrhage, mass effect or midline shift
[2024-07-23] MEDS: SODIUM CHLORIDE 0.9% 1000 ML 1,000 ML 999 ML IV (21:00)
[2024-07-23 21:25] LABS: Lactate (Lactic Acid) 1.7 mMol/L (0.4-2.0)
[2024-07-23 21:38] LABS: Basophils # (Auto) 0.1 Thou/mm3 (0.0-0.2); Basophils % (Auto) 1 % (0-2.5); Eosinophils # (Auto) 0.2 Thou/mm3 (0.0-0.5); Eosinophils % (Auto) 2 % (0-10); Hematocrit 49.9 % (36.0-46.0); Hemoglobin 17.2 g/dL (12.0-16.0); Immature Granulocytes % (Auto) 1 % (0-0); Immature Granulocytes Auto 0.07 Thou/mm3 (0.00-0.00); Lymphocytes # (Auto) 5.9 Thou/mm3 (1.0-4.8); Lymphocytes % (Auto) 44 % (10-50); Mean Corpuscular HGB Conc 34.5 g/dl (31.0-37.0); Mean Corpuscular Hemoglobin 28.2 pg (25.0-35.0); Mean Corpuscular Volume 82 fL (80-100); Monocytes # (Auto) 0.9 Thou/mm3 (0.0-0.8); Monocytes % (Auto) 7 % (0-12); Neutrophils # (Auto) 6.2 Thou/mm3 (1.8-7.7); Neutrophils % (Auto) 47 % (37-80); Nucleated Red Blood Cell % 0 /100 WBC (0); Platelet Count 317 Thou/mm3 (140-440); Red Blood Count 6.09 Miln/mm3 (4.00-5.20); White Blood Count 13.3 Thou/mm3 (3.6-11.0)
[2024-07-23] MEDS: PROPOFOL 1,000 MG IVPB 1,000 MG/100 ML VIAL 1.885 MG IV (21:49)
[2024-07-23 21:50] LABS: Collection Type, Urine Clean Catch; Squamous Epithelial Cell,Urine 0 /hpf (0-5)
[2024-07-23] MEDS: SODIUM CHLORIDE 0.9% 1000 ML 1,000 ML 100 ML IV (21:55)
[2024-07-23 22:00] LABS: Bilirubin,Urine Negative (Negative); Blood,Urine Negative (Negative); Clarity,Urine Clear (Clear/Hazy); Color,Urine Lt-Yellow (Lt Yel-Yel); Glucose, Urine Negative (Negative); Ketones,Urine Negative (Negative); Leukocyte Esterase,Urine Negative (Negative); Nitrite,Urine Negative (Negative); Protein,Urine Negative (Neg - Trace); RBC,Urine 3 /hpf (0-3); Specific Gravity,Urine 1.011 (1.001-1.035); Urobilinogen,Urine Negative mg/dL (0.0-1.0); WBC,Urine 1 /hpf (0-5)
[2024-07-23 22:09] LABS: Sed Rate (ESR) 23 mm/hr (0-30)
[2024-07-23 22:29] LABS: D-Dimer 592 ng/mL (<600)
[2024-07-23 22:36] LABS: B-Type Natriuretic Peptide 153 pg/mL (0-100)
[2024-07-23] MEDS: CEFEPIME INJ 2 GM in SODIUM CHLORIDE 0.9% (Popper) 50 ML IV (22:41)
[2024-07-23] MEDS: Vancomycin Inj 1,000 MG in SODIUM CHLORIDE 0.9% 250 ML 250 ML 166.667 MG IV (22:42)
[2024-07-23] MEDS: ROCURONIUM INJ 10 MG/ML VIAL 10 ML 50 MG IVP (22:47)
--- NOTE | 2024-07-23 22:47 | XR_ITS ---
Examination: AP chest single view Technique: AP portable supine chest single view Exam date and time: July 23, 2024 1057 hrs. Comparison July 23, 2024 1107 hrs. Indications: Post reposition orogastric tube Findings: Orogastric tube in the stomach sidehole above the GE junction Extensive bilateral pneumonia Endotracheal tube tip 5.3 cm above meño Normal heart size Impression: Advance the orogastric tube 7 cm
--- NOTE | 2024-07-23 22:49 | XR_ITS ---
Examination: Abdomen AP single view Technique: AP portable supine abdomen, single view Exam date and time: July 23, 2024 1059 hrs. Indications: Reposition orogastric tube Findings: Advance the orogastric tube 7 cm Large amounts of stool throughout the colon No free air Impression: Advance the orogastric tube 7 cm
--- NOTE | 2024-07-23 22:57 | ESCONSULT_ITS ---
History of Present Illness Data of Consult Primary Care Provider: Segun Bray MD Consult Narrative History of present illness: [facility] Patient Name:???shalini parson Date of :???1965 Identification Number:??? Date of Service:???07/23/2024 20:42:41 Diagnosis:?R41.89 - Unresponsive Impression: ?Pt is a 59 yo F with hx of schizoaffective disorder and mild mental retardation who was brought in by EMS who as brought from her shelter when she c/o headache and dizziness followed by progressive decline her her mental status, LKW today at 19:00. There was no focal weakness noted and pt is now intubated. PT was hypertensive with SBP in the 200's and hypoxic with O2 sat rate in the 60's when EMS arrived. CT head showed no acute ICH. CTA head and neck showed no LVO. There was 90% stenosis of the right P2 segment which is likely incident. Since there was no focal weakness that was noted by ESM, and there was obvious LVO that would explain pt's profound change in mental status, stroke was felt to be less likely and TNK was deferred. Pt also had a recent head injury on 07/01/2024 causing a scalp hematoma increasing the risk of ICH with TNK. ? ?Recommend work-up for toxic-metabolic encephoapathy as well as her hypoxia. Can obtain and MRI brain without contrast to rule out stroke and start pt on ASA 81 mg daily (or 300 mg IA if NPO) if there is no contraindication. Will also order a Valproic acid level and ammonia level. Our recommendations are outlined below. Recommendations: ? Stroke/Telemetry Floor ? Neuro Checks ? Bedside Swallow Eval ? DVT Prophylaxis ? IV Fluids, Normal Saline ? Head of Bed 30 Degrees ? Euglycemia and Avoid Hyperthermia (PRN Acetaminophen) ? Initiate or continue Aspirin 81 MG daily ?MRI brain without contrast ?Valproic acid level ?Ammonia level Sign Out: ? Discussed with Emergency Department Provider Advanced Imaging: CTA Head and Neck Completed. LVO:No Patient in not a candidate for ANA Metrics: Last Known Well: 07/23/2024 19:00:00 Dispatch Time: 07/23/2024 20:42:41 Arrival Time: 07/23/2024 20:38:00 Initial Response Time: 07/23/2024 20:46:49Symptoms: Decreased level of responsiveness. . Initial patient interaction: 07/23/2024 20:53:52 NIHSS Assessment Completed: 07/23/2024 20:56:18Patient is not a candidate for Thrombolytic. Thrombolytic Medical Decision: 07/23/2024 21:56:41Patient was not deemed candidate for Thrombolytic because of following reasons: other diagnosis suspected Toxic-metabolic encephalopathy . I personally Reviewed the CT Head and it Showed no acute ischemic changes, no ICH Primary Provider Notified of Diagnostic Impression and Management Plan on: 07/23/2024 22:02:16 History of Present Illness:Patient is a 59 year old Female. Patient was brought by EMS for symptoms of Decreased level of responsiveness. . Pt is a 59 yo F with hx of schizoaffective disorder and mild mental retardation who was brought in by EMS who as brought from her shelter for sudden decreased of level of responsiveness. Per staff at her care facility pt was in her USOH today at 19:00 when she suddenly complained of headache, dizziness and heartburn, She then seemed weak all over and had decreased level of responsiveness. BP was about 199/121. EMS was called. GCS was 10. PT was seemed to be having hiccups and gasping for air. , FSG was 172. BP was as high as 222/118. O2 sat was 63. Pt became less responsive and was bag-valve ventilation was started but without improvement in her O2 status. PT was seen in the ED when she fell and sustained a right scamp hematoma. CT head showed no ICH at that time. Facility reports no history of CVA, no history or seizures. Past Medical History: Other PMH:? Schizoaffective disorder ?mild mental retardation Medications: No Anticoagulant use? No Antiplatelet use Reviewed EMR for current medications Other Medications Pertinent To Assessment Include: Depakote? ?Clozapine Allergies:? NKDA Social History: Unable To Obtain Due To Patient Status :?Patient Is Obtunded/ Comatose Family History: There is no family history of premature cerebrovascular disease pertinent to this consultation ROS : 14 Points Review of Systems was performed and was negative except mentioned in HPI. Past Surgical History: There Is No Surgical History Contributory To Today?s Visit Examination: BP(222/118),?Pulse(60),?Blood Glucose(172) 1A: Level of Consciousness - Postures or Unresponsive?+ 3 1B: Ask Month and Age - Could Not Answer Either Question Correctly?+ 2 1C: Blink Eyes & Squeeze Hands - Performs 0 Tasks?+ 2 2: Test Horizontal Extraocular Movements - Normal?+ 0 3: Test Visual Wheeler - Bilateral Hemianopia?+ 3 4: Test Facial Palsy (Use Grimace if Obtunded) - Bilateral Complete paralysis (upper/lower face)?+ 3 5A: Test Left Arm Motor Drift - No Movement?+ 4 5B: Test Right Arm Motor Drift - No Movement?+ 4 6A: Test Left Leg Motor Drift - No Movement?+ 4 6B: Test Right Leg Motor Drift - No Movement?+ 4 7: Test Limb Ataxia (FNF/Heel-Owens) - No Ataxia?+ 0 8: Test Sensation - No Response and Quadriplegic?+ 2 9: Test Language/Aphasia - Mute/Global Aphasia: No Usable Speech/Auditory Comprehension?+ 3 10: Test Dysarthria - Mute/Anarthric?+ 2 11: Test Extinction/Inattention - No abnormality?+ 0 NIHSS Score:?36 NIHSS Free Text :?Pupils 4 mm bilaterally, right pupil does not react to light left pupil minimally reacts. Pre-Morbid Modified Teresa Scale:3 Points = Moderate disability; requiring some help, but able to walk without assistance Spoke with :?Dr. Abbe Kent Consent could not be obtained due to patient status and family not available. Patient is being evaluated for possible acute neurologic impairment and high probability of imminent or life-threatening deterioration. I spent total of 69 minutes providing care to this patient, including time for face to face visit via telemedicine, review of medical records, imaging studies and discussion of findings with providers, the patient and/or family. Dr Michelle Ferguson [facility] For Inpatient follow-up with [facility] physician please call [facility] at . As we are not an outpatient service for any post hospital discharge needs please contact the hospital for assistance. If you have any questions for the [facility] physicians or need to reconsult for clinical or diagnostic changes please contact us via [facility] at . cc:: cc: Meds Home Medications and Allergies Home Medications ?Medication ?Instructions ?Recorded ?Confirmed ?Type divalproex 500 mg tablet,delayed 1,000 mg PO QDAY 12/2608/11/20 History release clozapine 200 mg tablet 200 mg PO QDAY 07/29/1908/27 History linaclotide 145 mcg capsule 145 mcg PO QDAY 07/29/19 0 08/11/20 History (Linzess) docusate sodium 250 mg capsule 250 mg PO QDAY 08/11/20 08/11/20 History (Stool Softener) oxybutynin chloride 5 mg tablet 5 mg PO TID 08/11/20 0 08/11/20 History polyethylene glycol 3350 17 17 g PO QDAY 08/11/2008/27 History gram/dose oral powder Allergies Allergy/AdvReac Type Severity Reaction Status Date / Time No Known Allergies Allergy Verified 05/26/24 11:29 Exam - Neurology Vital Signs Temp Pulse Resp BP Pulse Ox O2 Del Method FiO2 97.2 F 60 15 59/42 L 97 Mechanical Ventilation 100 07/23/24 20:40 07/23/24 21:00 07/23/24 21:00 07/23/24 21:00 07/23/24 21:00 07/23/24 21:00 07/23/24 21:00 Results Labs 07/23/24 20:45 07/23/24 20:45 Labs: Short CBC 07/23/24 Range/Units 20:45 WBC 13.3 H (3.6-11.0) Thou/mm3 Hgb 17.2 H (12.0-16.0) g/dL Hct 49.9 H (36.0-46.0) % Plt Count 317 (140-440) Thou/mm3 Urine 07/23/24 Range/Units 21:45 Urine Color Lt-Yellow (Lt Yel-Yel) Urine Clarity Clear (Clear/Hazy) Urine pH 7.0 (5.0-7.0) Ur Specific [place] 1.011 (1.001-1.035) Urine Protein Negative (Neg - Trace) Urine Glucose (UA) Negative (Negative)
[2024-07-23 22:58] LABS: Amphetamine/Methamp Scrn,U Negative (Negative); Barbiturate Screen,Urine Negative (Negative); Benzodiazepines Screen,Urine Negative (Negative); Benzoylecgonine Screen, Ur Negative (Negative); Fentanyl Screen,Urine Negative (Negative); Opiate Screen,Urine Negative (Negative); THC Screen,Urine Negative (Negative)
[2024-07-23 23:02] LABS: INR 1.1 (0.9-1.3)
[2024-07-23 23:16] LABS: Base Excess 0 (-3-3); HCO3 24 mEq/L (20-26); Inspired Oxygen, FIO2 21 %; O2 Saturation 99 % (91-98); PCO2 35 mmHg (32.0-48.0); PO2 213 mmHg (83-108); pH, Arterial 7.44 (7.35-7.45)
[2024-07-23 23:17] LABS: Allen Test Performed/OK; Puncture Site Left Radial
[2024-07-23 23:37] LABS: Alanine Aminotransferase 19 U/L (10-49); Albumin/Globulin Ratio 1.2 (1.2-2.2); Alkaline Phosphatase 116 U/L (46-116); Anion Gap 7 (7-16); Aspartate Amino Transferase 32 U/L (0-34); BUN/Creatinine Ratio 20 Ratio (12-20); Bilirubin,Total 0.4 mg/dL (0.3-1.2); Blood Urea Nitrogen 16 mg/dL (9-23); Calcium 8.4 mg/dL (8.3-10.6); Calcium (Corrected) 8.4 mg/dL (8.5-10.1); Chloride 92 mMol/L (98-107); Creatine Kinase 65 U/L (34-171); Creatinine (Component) 0.8 mg/dL (0.6-1.3); Estimated Creatinine Clearance 72.6 mL/min (>60); Free T4 (Free Thyroxine) 0.77 ng/dL (0.89-1.76); Globulin 3.4 gm/dL (2.3-3.5); Glucose 140 mg/dL (74-106); Magnesium 1.8 mg/dL (1.6-2.6); Osmolality,Calculated 254 (275-295); Potassium 4.7 mMol/L (3.4-5.1); Procalcitonin 0.06 ng/ml (0.0-0.49); Sodium 125 mMol/L (136-145); Thyroid Stimulating Hormone 4.55 uIU/mL (0.55-4.78); Total Protein 7.4 gm/dL (5.7-8.2); Troponin I 0.035 ng/mL (0.0-0.045); eGFR > 60 See Note
[2024-07-23 23:40] LABS: Acetaminophen < 2.0 mcg/mL (10.0-20.0); Alcohol, Blood Medical < 3.0 mg/dL (0-10.0)
--- NOTE | 2024-07-23 23:40 | PD.RESHP ---
Documentation for date of: 07/23/24 [facility] History of Present Illness Chief complaint: [facility] History of present illness: Patient is a 59 year old female with PMH of schizoaffective disorder, mental disability, IBD who presents to the ER for dizziness and hypoxia. Patient is from a custodial associated with [facility] and is not conserved. History obtained by caregiver, custodial stock control clerk, and chart review. Patient last known well at 1900 when she complained of headache and dizziness. Home blood pressure was SBP 190s so EMS was called. En route, patient became altered and difficulty breathing at 76% on room air with BP 205/143. Per caregiver and custodial stock control clerk, patient was well at home. She has a history of imbalance problems and falling, and had stitches recently removed for a scalp laceration from her falls. Denies any recent complaints - no fevers, cough, sick contact at home. Of note, patient was recently taken of ability and started her first dose of Cobenify yesterday. PMH: schizoaffective disorder, IBD Allergies: NKDA SH: ambulates on own, now using gait belt ER Course Upon arrival, GCS was 8-9 and patient was intubated. Stroke alert was called and patient was evaluated by tele-neuro. Lab show hypo-osmolar hyponatremia. CXR showed bilateral pneumonia. CT head was negative. CTA showed 90% stenosis of P2 of RPCA. UA negative. EKG unremarkable. She recieved vancomycin, cefepime, 2L of IVF, and propofol. Patient admitted to the ICU for acute hypoxic respiratory failure. Review of Systems Review of Systems ROS Unobtainable: unobtainable due to mental status and due to endotracheal tube Exam Vital Signs Temp Pulse Resp BP Pulse Ox O2 Del Method FiO2 97.2 F 60 15 59/42 L 97 Mechanical Ventilation 100 07/23/24 20:40 07/23/24 21:00 07/23/24 21:00 07/23/24 21:00 07/23/24 21:00 07/23/24 21:00 07/23/24 21:00 Narrative Exam Constitutional: Intubated, sedated. HEENT: Healing scalp laceration right parietal lobe, no bleeding. Dry mucous membranes. Pupil sluggish, minimally reactive. Respiratory: Diffuse bilateral crackles. Cardiac: RRR. Abdomen: Soft, non-distended, non-tender. MSK: No B/L LE edema. Skin: Warm, dry, intact. Multiple bruises bilateral shins. Neuro: Unresponsive to sternal rub Results: Labs 07/23/24 20:45 07/23/24 20:45 Labs: Short CBC 07/23/24 Range/Units 20:45 WBC 13.3 H (3.6-11.0) Thou/mm3 Hgb 17.2 H (12.0-16.0) g/dL Hct 49.9 H (36.0-46.0) % Plt Count 317 (140-440) Thou/mm3 BMP 07/23/24 20:45 Sodium 125 L Potassium 4.7 Chloride 92 L Carbon Dioxide 26.0 BUN 16 Creatinine 0.8 Glucose 140 H Calcium 8.4 Cardiac Enzymes 07/23/24 Range/Units 20:45 Total Creatine Kinase 65 (34-171) U/L Troponin I 0.035 (0.0-0.045) ng/mL Liver Function 07/23/24 Range/Units 20:45 Total Bilirubin 0.4 (0.3-1.2) mg/dL AST 32 (0-34) U/L ALT 19 (10-49) U/L Alkaline Phosphatase 116 (46-116) U/L Albumin 4.0 (3.5-5.0) gm/dL Urine 07/23/24 Range/Units 21:45 Urine Color Lt-Yellow (Lt Yel-Yel) Urine Clarity Clear (Clear/Hazy) Urine pH 7.0 (5.0-7.0) Ur Specific [place] 1.011 (1.001-1.035) Urine Protein Negative (Neg - Trace) Urine Glucose (UA) Negative (Negative) ABG Interpretation ABG results: 07/23/24 23:07 ABG pH 7.44 ABG pCO2 35 ABG pO2 213 H ABG HCO3 24 ABG O2 Saturation 99 H ABG Base Excess 0 Quality Measures Quality Measures none Medications Home Medications and Allergies Home Medications ?Medication ?Instructions ?Recorded ?Confirmed ?Type divalproex 500 mg tablet,delayed 1,000 mg PO QDAY 09/15/18 08/11/20 History release clozapine 200 mg tablet 200 mg PO QDAY 07/29/19 08/11/20 History linaclotide 145 mcg capsule 145 mcg PO QDAY 07/29/19 08/11/20 History (Linzess) docusate sodium 250 mg capsule 250 mg PO QDAY 08/11/20 08/11/20 History (Stool Softener) oxybutynin chloride 5 mg tablet 5 mg PO TID 08/11/20 08/11/20 History polyethylene glycol 3350 17 17 g PO QDAY 08/11/20 08/11/20 History gram/dose oral powder Allergies Allergy/AdvReac Type Severity Reaction Status Date / Time No Known Allergies Allergy Verified 05/26/24 11:29 Visit Medications Acetaminophen (Acetaminophen Supp 650 Mg Supp) 650 mg AK Q6HR PRN PRN Reason: [id number] Stop: 08/22/24 23:35 Famotidine (Famotidine Inj 10 Mg/Ml Vial 2 Ml) 20 mg IVP Q12HR TANYA Stop: 08/23/24 08:59 Heparin Sodium (Porcine) (Heparin Sod Inj 5000 Unit/Ml Vial) 5,000 unit SC Q8HR [facility] Stop: 08/07/24 05:59 Propofol (Diprivan Ivpb) 1,000 mg in 100 mls @ 1.885 mls/hr IV .Q24H PRN; Protocol PRN Reason: Per Protocol Stop: 08/22/24 20:50 Last Admin: 07/23/24 21:49 Dose: 5 mcg/kg/min, 1.885 mls/hr Sodium Chloride (Ns) 1,000 mls @ 100 mls/hr IV Q10H [facility] Stop: 08/22/24 20:59 Last Admin: 07/23/24 21:55 Dose: 100 mls/hr Vancomycin HCl 1,000 mg/ (Sodium Chloride) 250 mls @ 166.667 mls/hr IV X1 ONE Stop: 07/23/24 23:44 Last Admin: 07/23/24 22:42 Dose: 166.667 mls/hr Fentanyl Citrate (Sublimaze Inj 2,500 Mcg/250 Ml Bag) 2,500 mcg in 250 mls @ 2.5 mls/hr IV .Q24H PRN; Protocol PRN Reason: PER PROTOCOL Stop: 07/28/24 23:37 Labetalol HCl (Labetalol Inj 5 Mg/Ml Vial 20 Ml) 10 mg IV Q15M PRN PRN Reason: HYPER Ondansetron HCl (Ondansetron Inj 2 Mg/Ml Inj 2 Ml) 4 mg IV Q4HR PRN PRN Reason: NAUSEA OR VOMITING Stop: 08/22/24 20:51 Discontinued Medications Etomidate (Etomidate Inj 2 Mg/Ml Vial 10 Ml) 20 mg IVP X1 ONE Stop: 07/23/24 20:51 Last Admin: 07/23/24 20:48 Dose: 20 mg Sodium Chloride (Ns) 1,000 mls @ 999 mls/hr IV .Q1H1M ONE Stop: 07/23/24 22:20 Last Infusion: 07/23/24 22:49 Dose: Infused Cefepime HCl 2 gm/ Sodium (Chloride) 50 mls @ 100 mls/hr IV X1 ONE Stop: 07/23/24 22:35 Last Admin: 07/23/24 22:41 Dose: 100 mls/hr Labetalol HCl (Labetalol Inj 5 Mg/Ml Vial 20 Ml) 10 mg IVP X1 ONE Stop: 07/23/24 20:45 Last Admin: 07/23/24 20:50 Dose: 10 mg Rocuronium [place]dy (Rocuronium Inj 10 Mg/Ml Vial 10 Ml) 50 mg IVP X1 ONE Stop: 07/23/24 20:51 Last Admin: 07/23/24 22:47 Dose: 50 mg Sodium Chloride (Sodium Chloride Rt 10% 15 Ml Nebu) 5 ml INH X1 ONE Stop: 07/23/24 21:37 Succinylcholine Chloride (Succinylcholine Inj 20 Mg/Ml Vial 10 Ml) 100 mg IV X1 ONE Stop: 07/23/24 20:51 Last Admin: 07/23/24 20:48 Dose: 100 mg Assessment & Plan Plan Patient is a 59 year old female with PMH of schizoaffective disorder, mental disability, IBD admitted to the ICU for acute hypoxic respiratory failure. [employer] Sedation: prop, fent RAAS - 2 #Stroke rule out Head CT neg. Head/neck CTA shows 90% stenosis of P2 of RPCA Initial NIHHS 36; not a candidate for TNK - Lipid panel, TSH, A1c - Echo - MR Brain without contrast - Permissive HTN - Aspirin, statin #History of Schizoaffective Disorder Holding home meds: divalproex, cobenify CARDIOVASCULAR Pressors: None RESPIRATORY Vent settings: ACMV PC RR 15 PC 20 PEEP 5 FIO2 100 ABG #Acute hypoxic respiratory failure secondary to possible versus bilateral pneumonia, aspiration pneumonitis seen on CXR - Repeat ABG, wean FiO2 as tolerated - Antibiotics as below RENAL #Hypo-osmolar hyponatremia Patient appears euvolemic on exam; history of hyponatremia May be secondary to psych meds GI #History of IBD Holding home Amina ENDO No acute problems HEME No acute problems ID #Bilateral community acquired pneumoniva versus aspiration pneumonitis - Follow up blood culture, sputum culture - Empiric vanc and zosyn Health Maintenance Disposition: Admit to ICU for AHRF Diet and fluids: NPO DVT prophylaxis: heparin GI prophylaxis: pepcid Lines: PIV, [place], ET, OG CODE STATUS: FULL I have reviewed and discussed the patient's care with my attending, Dr. Angel Hansen MD PGY-3 Attending Provider Attestation/Addendum I have examined the patient, reviewed labs and imaging findings, discussed the case with the resident(s), and reviewed entered orders. I agree with the plan of care as outlined in this note, with these additional summaries/recommendations: Patient is a 59-year-old female with a medical history of schizoaffective disorder, mild mental retardation, history of pituitary tumor status post surgery, carcinoma of the cervix status postchemotherapy and radiation, and IBS with constipation who presented to [facility] emergency department on 07/23/2024 from [facility] with sudden decreased level of responsiveness. Patient was in her normal state of health at approximately 7 PM tonight. She suddenly complained of headache, dizziness, heartburn, developed burping and then started gasping for air. EMS reported BP was 222/118 and O2 sat was 63%. Patient continued to become less responsive and was bagged valve ventilated without improvement in her O2 status. Patient was intubated in the emergency room and a stroke alert was called. Patient will be admitted to the ICU. Patient and care provider seen at bedside. Patient is currently intubated and no history can be obtained. No obvious metabolic etiology for patient's acute encephalopathy/decreased level of consciousness. Most likely secondary to hypoxia/infectious etiology versus CVA. Low suspicion for structural or seizures. U tox within normal limits. No evidence of urinary retention. Ammonia level and valproic acid level ordered. Patient now on sedation with propofol and fentanyl. Stroke alert was called in the emergency department and patient was seen by teleneurology. CT head negative for acute hemorrhage, mass effect or midline shift. CTA head and neck showed no LVO but did reveal 90% stenosis P2 segment right posterior cerebral artery which is likely an incidental finding. We will proceed with stroke workup including MRI brain and echocardiogram.. Teleneurology recommends starting aspirin 81 mg daily. Consult in-house neurology. Patient was also diagnosed with acute hypoxic respiratory failure most likely secondary to aspiration pneumonia. Chest x-ray showed extensive bilateral pneumonia. Leukocytosis present. Patient was intubated in the emergency department and ET tube 4.2 cm above the meño. Continue mechanical ventilation and wean as tolerated. Original ABG reviewed and we will continue to decrease FiO2 as needed. Start IV antibiotics. Blood and urine cultures taken in the ED. Order sputum cultures. Start PPI. Patient appears to have chronic hypotonic hyponatremia which is slightly worsened from patient's baseline. On admission sodium 125 and osmolality 254. Patient appears euvolemic on physical exam. Patient was given 1 L fluid bolus in the ED. We will monitor sodium for now and if worsens we will order hyponatremia workup. Etiology possibly secondary to antipsychotics versus low solute intake versus polydipsia. We will hold home antipsychotics for now. Repeat hematology and chemistry panel in AM. Care provider updated at bedside. Patient is full code and not conserved. Please see residents note for additional details. Dr. Angel MD
[2024-07-24] VITALS (58 sets, daily range): BP systolic 109–165; BP diastolic 62–125; PULSE 54–83; RESP 7–21; TEMP 35.3–37.1; O2SAT 90–100; BMI 21.9
[2024-07-24 00:05] LABS: C-Reactive Protein < 0.5 mg/dL (0.0-0.9)
[2024-07-24] MEDS: PIPER/TAZO 3.375 GM PREMIX 3.375 GM/50 ML BAG IV ×2 (01:07→05:29)
[2024-07-24 01:11] LABS: Ammonia < 10 uMol/L (11-32)
[2024-07-24] MEDS: PROPOFOL 1,000 MG IVPB 1,000 MG/100 ML VIAL 7.539 MG IV ×2 (02:00→10:29)
[2024-07-24] MEDS: HEPARIN SOD INJ 5000 UNIT/ML VIAL SC ×3 (05:26→22:14)
[2024-07-24 05:29] LABS: Basophils % (Auto) 0 % (0-2.5); Eosinophils # (Auto) 0.1 Thou/mm3 (0.0-0.5); Eosinophils % (Auto) 0 % (0-10); Hematocrit 45.5 % (36.0-46.0); Hemoglobin 15.7 g/dL (12.0-16.0); Immature Granulocytes % (Auto) 1 % (0-0); Immature Granulocytes Auto 0.07 Thou/mm3 (0.00-0.00); Lymphocytes # (Auto) 2.9 Thou/mm3 (1.0-4.8); Lymphocytes % (Auto) 23 % (10-50); Mean Corpuscular HGB Conc 34.5 g/dl (31.0-37.0); Mean Corpuscular Hemoglobin 28.1 pg (25.0-35.0); Mean Corpuscular Volume 82 fL (80-100); Monocytes # (Auto) 0.7 Thou/mm3 (0.0-0.8); Monocytes % (Auto) 6 % (0-12); Neutrophils # (Auto) 8.7 Thou/mm3 (1.8-7.7); Neutrophils % (Auto) 70 % (37-80); Nucleated Red Blood Cell % 0 /100 WBC (0); Platelet Count 229 Thou/mm3 (140-440); RDW Standard Deviation 38.7 fL (36.4-46.3); Red Blood Count 5.58 Miln/mm3 (4.00-5.20); White Blood Count 12.4 Thou/mm3 (3.6-11.0)
[2024-07-24 05:33] LABS: Base Excess 0 (-3-3); HCO3 21 mEq/L (20-26); Inspired Oxygen, FIO2 75 %; O2 Saturation 99 % (91-98); PCO2 25 mmHg (32.0-48.0); PO2 188 mmHg (83-108); pH, Arterial 7.53 (7.35-7.45)
[2024-07-24 05:36] LABS: Allen Test Performed/OK; Puncture Site Left Radial
[2024-07-24 06:09] LABS: INR 1.1 (0.9-1.3); Prothrombin Time 12.4 Seconds (9.0-12.2)
[2024-07-24 06:28] LABS: Alanine Aminotransferase 20 U/L (10-49); Albumin, Serum 3.2 gm/dL (3.5-5.0); Albumin/Globulin Ratio 1.2 (1.2-2.2); Alkaline Phosphatase 91 U/L (46-116); Anion Gap 8 (7-16); Aspartate Amino Transferase 45 U/L (0-34); BUN/Creatinine Ratio 21 Ratio (12-20); Bilirubin,Total 0.6 mg/dL (0.3-1.2); Blood Urea Nitrogen 15 mg/dL (9-23); Calcium 7.8 mg/dL (8.3-10.6); Calcium (Corrected) 8.4 mg/dL (8.5-10.1); Carbon Dioxide 24.6 mMol/L (20.0-31.0); Chloride 96 mMol/L (98-107); Creatinine (Component) 0.7 mg/dL (0.6-1.3); Globulin 2.7 gm/dL (2.3-3.5); Glucose 120 mg/dL (74-106); Magnesium 1.8 mg/dL (1.6-2.6); Osmolality,Calculated 260 (275-295); Phosphorous 2.2 mg/dL (2.4-5.1); Potassium 5.3 mMol/L (3.4-5.1); Sodium 129 mMol/L (136-145); Total Protein 5.9 gm/dL (5.7-8.2); eGFR > 60 See Note
[2024-07-24 06:46] LABS: Cardiac Risk Estimate 2.7 RATIO (3.7-5.6); Cholesterol 139 mg/dL (132-200); HDL Cholesterol 51 mg/dL (40-60); LDL Cholesterol,Calculated 68 mg/dL (0-130); Triglycerides 102 mg/dL (30-150)
[2024-07-24 07:00] LABS: Glucose Estimated Average 105 mg/dL (80-131); Hemoglobin A1C 5.3 % Hgb (4.8-6.0)
[2024-07-24 08:06] LABS: Allen Test Performed/OK; Base Excess 2 (-3-3); HCO3 24 mEq/L (20-26); Inspired Oxygen, FIO2 60 %; O2 Saturation 99 % (91-98); PCO2 31 mmHg (32.0-48.0); PO2 161 mmHg (83-108); Puncture Site Left Radial; pH, Arterial 7.51 (7.35-7.45)
--- NOTE | 2024-07-24 09:55 | PC.RT ---
Sputum sent to lab
[2024-07-24] MEDS: ASPIRIN 81 MG CHEW PO (10:30)
[2024-07-24] MEDS: FAMOTIDINE INJ 10 MG/ML VIAL 2 ML 20 MG IVP ×2 (10:30→22:14)
[2024-07-24] MEDS: SODIUM CHLORIDE 0.9% 1000 ML 1,000 ML 100 ML IV (10:31)
--- NOTE | 2024-07-24 11:08 | XR_ITS ---
Examination: AP chest single view TECHNIQUE: AP portable semiupright chest single view Exam date and time: July 1122 hours Comparison February 22, 2085 INDICATIONS: Hypoxic respiratory failure postintubation FINDINGS: Pneumonia left base retrocardiac Mild pneumonia right base Endotracheal tube tip 4 cm above meño Orogastric tube sidehole is well above the gastrointestinal junction IMPRESSION: Bibasilar pneumonia Advance the orogastric tube 10 cm
--- NOTE | 2024-07-24 11:17 | PD.RESCONSUL ---
HPI Data of Consult Requesting Physician: Shavonne Akins MD Admitting Provider: Sherif Ortiz MD Attending Provider: Shavonne Akins MD Primary Care Provider: Segun Bray MD Consult Narrative History of present illness: 59-year-old woman with past medical history of schizoaffective disorder, mental disability, IBD who was admitted to [facility] to ICU due to acute hypoxic respiratory failure. Neurology was consulted. Patient is a skilled nursing resident history was taken per chart review, and apparently was complaining of headache and dizziness and at the skilled nursing blood pressure was taken and was in the 9080s for which they called the ambulance to bring her to the hospital and later she became altered and tachypneic hypoxic to the 76% on room air and blood pressure was 205/143. At the ED head CT was negative for hemorrhage, midline shift or mass effect, CTA showed 90% stenosis of P2 of R REHEATER stroke alert was called and teleneurology was consulted with NIHSS of 36 otherwise patient was not a candidate for tenecteplase. cc:: cc: Shavonne Akins MD Review of Systems Review of Systems ROS Unobtainable: unobtainable due to mental status and due to endotracheal tube Past Medical History Past Medical History NEUROLOGIC: Positive Neurological Disorders and Head Trauma; Negative Seizures CARDIAC: Negative Cardiac Disorders or Congestive Heart Failure RESPIRATORY: Negative Chronic Obstructive Pulmonary Disease (COPD) GASTROINTESTINAL: Positive Gastrointestinal Disorders GENITOURINARY: Negative Genitourinary Disorders or Renal Disease MUSCULOSKELETAL: Positive Musculoskeletal Disorders and Fractures ENT: Positive Head Trauma ENDOCRINE: Negative Endocrine Disorders, Diabetes Mellitus Type 1 or Diabetes Mellitus Type 2 HEMATOLOGIC: Negative Blood Disorders PSYCHO/SOCIAL: Positive Schizophrenia, Behavior Problems (schizoaffective disorder and ADHD) and Attention Deficit Hyperactivity Disorder OTHER HISTORY: Positive Developmental Delay and Falls; Negative Hospitalization, Autoimmune Disease, Down Syndrome, Blood Transfusions, Anesthesia Reactions or Cancer Surgical History SURGICAL: Positive Open Reduction Internal Fixation and Hysterectomy Social History SMOKING STATUS: Never smoker SUBSTANCE USE: does not use Exam Vital Signs Temp Pulse Resp BP Pulse Ox O2 Del Method FiO2 95.6 F L 69 15 110/67 98 Mechanical Ventilation 35 07/24/24 04:00 07/24/24 09:57 07/24/24 04:00 07/24/24 09:57 07/24/24 09:57 07/24/24 04:00 07/24/24 09:57 Narrative Exam General: Sedated and mechanically ventilated, frail HEENT: NC/AT, PERRL, pinpoint pupils, moist mucous membranes, ET tube in place, scalp laceration Neck: Supple, No masses, No adenopathy, carotid pulse 2+ bilaterally without bruits, No JVD, normal range of motion. Chest: Symmetrical, atraumatic, and with equal expansion , Nontender on palpation no deformity and no crepitus. CVS: S1 and S2 present, Regular rate and rhythm, No murmurs, rubs or gallops perceived during auscultation. Lungs: Coarse sounds consistent with mechanical ventilation perceived during auscultation, No intercostal or subcostal retraction. Abdomen : Soft, no tenderness to palpation, no guarding ,no rebound, +BS Extremities: No edema, warm well perfused, normal tone and ROM, strength and sensation intact, cap refill less than 2, +2 dp equal bilaterally, able to move all 4 extremities spontaneously. Skin: Scalp laceration Neuro: AOx0 sedated and mechanically ventilated, no focal neurologic deficits noted, awakes to voice, withdraws to pain in all 4 extremities, gait not assessed, Babinski negative Psych: Difficult to assess due to patient is sedated Results Labs 07/24/24 05:05 07/24/24 13:00 Labs: Short CBC 07/23/24 07/24/24 Range/Units 20:45 05:05 WBC 13.3 H 12.4 H (3.6-11.0) Thou/mm3 Hgb 17.2 H 15.7 (12.0-16.0) g/dL Hct 49.9 H 45.5 (36.0-46.0) % Plt Count 317 229 D (140-440) Thou/mm3 BMP 07/23/24 07/24/24 20:45 05:05 Sodium 125 L 129 L Potassium 4.7 5.3 H D Chloride 92 L 96 L Carbon Dioxide 26.0 24.6 BUN 16 15 Creatinine 0.8 0.7 Glucose 140 H 120 H Calcium 8.4 7.8 L Cardiac Enzymes 07/23/24 Range/Units 20:45 Total Creatine Kinase 65 (34-171) U/L Troponin I 0.035 (0.0-0.045) ng/mL Liver Function 07/23/24 07/24/24 Range/Units 20:45 05:05 Total Bilirubin 0.4 0.6 (0.3-1.2) mg/dL AST 32 45 H (0-34) U/L ALT 19 20 (10-49) U/L Alkaline Phosphatase 116 91 D (46-116) U/L Albumin 4.0 3.2 L D (3.5-5.0) gm/dL Urine 07/23/24 Range/Units 21:45 Urine Color Lt-Yellow (Lt Yel-Yel) Urine Clarity Clear (Clear/Hazy) Urine pH 7.0 (5.0-7.0) Ur Specific [place] 1.011 (1.001-1.035) Urine Protein Negative (Neg - Trace) Urine Glucose (UA) Negative (Negative) ABG Interpretation ABG results: 07/23/24 07/24/24 07/24/24 23:07 05:12 08:00 ABG pH 7.44 7.53 H 7.51 H ABG pCO2 35 25 L D 31 L ABG pO2 213 H 188 H D 161 H D ABG HCO3 24 21 24 ABG O2 Saturation 99 H 99 H 99 H ABG Base Excess 0 0 2 Quality Measures Quality Measures none Medications Home Medications and Allergies Home Medications ?Medication ?Instructions ?Recorded ?Confirmed ?Type divalproex 500 mg tablet,delayed 1,000 mg PO QDAY 09/15/18 08/11/20 History release clozapine 200 mg tablet 200 mg PO QDAY 07/29/19 08/11/20 History linaclotide 145 mcg capsule 145 mcg PO QDAY 07/29/19 08/11/20 History (Linzess) docusate sodium 250 mg capsule 250 mg PO QDAY 08/11/20 08/11/20 History (Stool Softener) oxybutynin chloride 5 mg tablet 5 mg PO TID 08/11/20 08/11/20 History polyethylene glycol 3350 17 17 g PO QDAY 08/11/20 08/11/20 History gram/dose oral powder Allergies Allergy/AdvReac Type Severity Reaction Status Date / Time No Known Allergies Allergy Verified 05/26/24 11:29 Visit Medications Acetaminophen (Acetaminophen Supp 650 Mg Supp) 650 mg IL Q6HR PRN PRN Reason: [id number] Stop: 08/22/24 23:35 Aspirin (Aspirin 81 Mg Chew) 81 mg PO QDAY [facility] Stop: 08/23/24 08:59 Last Admin: 07/24/24 10:30 Dose: 81 mg Famotidine (Famotidine Inj 10 Mg/Ml Vial 2 Ml) 20 mg IVP Q12HR TANYA Stop: 08/23/24 08:59 Last Admin: 07/24/24 10:30 Dose: 20 mg Heparin Sodium (Porcine) (Heparin Sod Inj 5000 Unit/Ml Vial) 5,000 unit SC Q8HR [facility] Stop: 08/07/24 05:59 Last Admin: 07/24/24 05:26 Dose: 5,000 unit Sodium Chloride (Ns) 1,000 mls @ 100 mls/hr IV Q10H TANYA Stop: 08/22/24 20:59 Last Admin: 07/24/24 10:31 Dose: 100 mls/hr Fentanyl Citrate (Sublimaze Inj 2,500 Mcg/250 Ml Bag) 2,500 mcg in 250 mls @ 2.5 mls/hr IV .Q24H PRN; Protocol PRN Reason: PER PROTOCOL Stop: 07/28/24 23:37 Piperacillin/Tazobactam/Dextrose (Zosyn) 3.375 gm in 50 mls @ 100 mls/hr IV Q8HR [facility] Stop: 07/30/24 23:52 Last Admin: 07/24/24 05:29 Dose: 100 mls/hr Propofol (Diprivan Ivpb) 1,000 mg in 100 mls @ 1.885 mls/hr IV .Q24H PRN; Protocol PRN Reason: Per Protocol Stop: 08/22/24 20:50 Last Admin: 07/24/24 10:29 Dose: 20 mcg/kg/min, 7.539 mls/hr Labetalol HCl (Labetalol Inj 5 Mg/Ml Vial 20 Ml) 10 mg IV Q15M PRN PRN Reason: HYPER Ondansetron HCl (Ondansetron Inj 2 Mg/Ml Inj 2 Ml) 4 mg IV Q4HR PRN PRN Reason: NAUSEA OR VOMITING Stop: 08/22/24 23:43 Discontinued Medications Etomidate (Etomidate Inj 2 Mg/Ml Vial 10 Ml) 20 mg IVP X1 ONE Stop: 07/23/24 20:51 Last Admin: 07/23/24 20:48 Dose: 20 mg Propofol (Diprivan Ivpb) 1,000 mg in 100 mls @ 1.885 mls/hr IV .Q24H PRN; Protocol PRN Reason: Per Protocol Stop: 08/22/24 20:50 Last Titration: 07/23/24 22:10 Dose: 20 mcg/kg/min, 7.539 mls/hr Sodium Chloride (Ns) 1,000 mls @ 999 mls/hr IV .Q1H1M ONE Stop: 07/23/24 22:20 Last Infusion: 07/23/24 22:49 Dose: Infused Cefepime HCl 2 gm/ Sodium (Chloride) 50 mls @ 100 mls/hr IV X1 ONE Stop: 07/23/24 22:35 Last Infusion: 07/23/24 23:50 Dose: Infused Vancomycin HCl 1,000 mg/ (Sodium Chloride) 250 mls @ 166.667 mls/hr IV X1 ONE Stop: 07/23/24 23:44 Last Infusion: 07/24/24 00:19 Dose: Infused Labetalol HCl (Labetalol Inj 5 Mg/Ml Vial 20 Ml) 10 mg IVP X1 ONE Stop: 07/23/24 20:45 Last Admin: 07/23/24 20:50 Dose: 10 mg Ondansetron HCl (Ondansetron Inj 2 Mg/Ml Inj 2 Ml) 4 mg IV Q4HR PRN PRN Reason: NAUSEA OR VOMITING Stop: 08/22/24 20:51 Rocuronium [place] (Rocuronium Inj 10 Mg/Ml Vial 10 Ml) 50 mg IVP X1 ONE Stop: 07/23/24 20:51 Last Admin: 07/23/24 22:47 Dose: 50 mg Sodium Chloride (Sodium Chloride Rt 10% 15 Ml Nebu) 5 ml INH X1 ONE Stop: 07/23/24 21:37 Succinylcholine Chloride (Succinylcholine Inj 20 Mg/Ml Vial 10 Ml) 100 mg IV X1 ONE Stop: 07/23/24 20:51 Last Admin: 07/23/24 20:48 Dose: 100 mg Assessment & Plan Plan #Acute encephalopathy improving Possibly secondary to hypoxia versus metabolic Patient has past medical history of schizoaffective disorder and intellectual disability and before coming to the ED was presenting altered mental status and hypoxia requiring intubation and admission to the ICU When patient was evaluated this morning in the ICU was sedated and responding and withdrawing to pain able to move her eyes spontaneously Later during today patient self extubated herself today and is back to baseline mental status Head CT was negative for hemorrhage, masses or midline shift CTA neck/head showed, No significant neck arterial stenoses, No cerebral large vessel arterial occlusions, 90% stenosis P2 segment right posterior cerebral artery Plan: ? Echo bubble study pending ? Continue aspirin 81 mg p.o. daily #Hypertensive emergency resolved #Hypoosmolar hyponatremia, chronic #Schizoaffective disorder, patient history #Intellectual disability, patient history #Acute hypoxic respiratory failure resolved #Community-acquired pneumonia #Pulmonary edema improving #Hx of IBD - continue management per primary team Patient discussed with my attending Dr Erin Quezada MD PGY-3 Disclaimer: Despite multiple revisions, due to the dictation software being used, the document bellow may not be free of grammatical errors including phonetic/typographic errors. However, this does not deter from our commitment to providing health care in the patient's best interest in mind. Attending Provider Attestation/Addendum I personally have seen and examined the patient and I agree with resident's findings, assessment and plan of care. Continue with the current management and continue to monitor her closely
--- NOTE | 2024-07-24 11:26 | ESPR_ITS ---
Documentation for date of: 07/24/24 Subjective Subjective Interval history: Patient is a 59 year old female with PMH of schizoaffective disorder, mental disability, IBD who presents to the ER for dizziness and hypoxia. Patient is from a [facility] associated with [facility] and is not conserved. History obtained by caregiver, [employer] household appliances salesperson, and chart review. Patient last known well at 1900 when she complained of headache and dizziness. Home blood pressure was SBP 190s so EMS was called. En route, patient became altered and difficulty breathing at 76% on room air with BP 205/143. Per caregiver and [employer] salesperson, patient was well at home. She has a history of imbalance problems and falling, and had stitches recently removed for a scalp laceration from her falls. Denies any recent complaints - no fevers, cough, sick contact at home. Of note, patient was recently taken of ability and started her first dose of Cobenify yesterday. 07/24/2024: Patient seen and examined at bedside this morning. Patient became hypothermic overnight and was placed on a Ave hugger. She was intubated this morning and was changed from pressure support to AC/VC. Patient was in even though she was restrained with soft wrist restraints she was able to extubate herself. Checks x-ray did not show improvement in her pulmonary edema. Will reach out to patient's guardian to get more information about the patient's baseline. She was able to move all extremities, but unable to follow commands and nonverbal. Will get speech therapist evaluation. At this time patient is stable to be downgraded to medical floors. Exam Vital Signs Temp Pulse Resp BP Pulse Ox O2 Del Method FiO2 95.6 F L 69 15 110/67 98 Mechanical Ventilation 35 07/24/24 04:00 07/24/24 09:57 07/24/24 04:00 07/24/24 09:57 07/24/24 09:57 07/24/24 04:00 07/24/24 09:57 Narrative Exam General: nonverbal and unable to follow commands, no acute distress Eyes: PERRL, EOMI. Anicteric, reddish sclera RITA, vision grossly intact. Ears: No ear pain, no ear discharge, Hearing grossly intact. Nose: No nasal discharge. Mouth/Throat: Moist mucous membranes, no redness, no lesions. Neck: Neck supple, non-tender, no cervical lymphadenopathy. Lungs: Clear RITA to auscultation and percussion, No accessory muscle use. Cardio: Normal S1/S2, regular rhythm, no murmurs, no JVD. Abdomen: Soft, non-tender, no palpable masses, peristalsis present, no guarding or rebound. Extremities: Symmetrical, no significant deformities, no peripheral edema , non-tender, peripheral pulses presents. Skin: No rashes, no lesions, warm to touch, some discoloration of temporal area on R side. Neuro: Able to move all extremities, able to tract when spoken too Objective Labs 07/24/24 05:05 07/24/24 13:00 Labs: Laboratory Results - last 24 hr 07/23/24 07/23/24 07/23/24 20:45 21:45 23:07 WBC 13.3 H RBC 6.09 H Hgb 17.2 H Hct 49.9 H MCV 82 MCH 28.2 MCHC 34.5 RDW Std Deviation 39.0 Plt Count 317 Neut % (Auto) 47 Lymph % (Auto) 44 [place] % (Auto) 7 Eos % (Auto) 2 Baso % (Auto) 1 Neut # (Auto) 6.2 Lymph # (Auto) 5.9 H [place] # (Auto) 0.9 H Eos # (Auto) 0.2 Baso # (Auto) 0.1 Immature Gran # (Auto) 0.07 H Absolute Nucleated RBC 0.00 Immature Gran % 1 H Nucleated RBC % 0 Smear Path Review Cancelled ESR 23 PT 12.0 INR 1.1 APTT 34.0 D-Dimer 592 Puncture Site Left Radial ABG pH 7.44 ABG pCO2 35 ABG pO2 213 H ABG HCO3 24 ABG O2 Saturation 99 H ABG Base Excess 0 FiO2 21 Sodium 125 L Potassium 4.7 Chloride 92 L Carbon Dioxide 26.0 Anion Gap 7 BUN 16 Creatinine 0.8 Estim Creat Clear Calc 72.6 eGFR > 60 BUN/Creatinine Ratio [address] Glu mg/dL Hemoglobin A1c Calculated Osmolality 254 L Lactic Acid 1.7 Calcium 8.4 Corrected Calcium 8.4 L Phosphorus Magnesium 1.8 Total Bilirubin 0.4 AST 32 ALT 19 Alkaline Phosphatase 116 Ammonia Total Creatine Kinase 65 Troponin I 0.035 C-Reactive Prot, Quant < 0.5 B-Natriuretic Peptide 153 H Total Protein 7.4 Albumin 4.0 Globulin 3.4 Albumin/Globulin Ratio 1.2 Triglycerides Cholesterol LDL Cholesterol, Calc HDL Cholesterol Cholesterol/HDL Ratio Procalcitonin 0.06 TSH 4.55 Free T4 0.77 L Ur Collection Type Clean Catch Urine Color Lt-Yellow Urine Clarity Clear Urine pH 7.0 Ur Specific [place] 1.011 Urine Protein Negative Urine Glucose (UA) Negative Urine Ketones Negative Urine Blood Negative Urine Nitrite Negative Urine Bilirubin Negative Urine Urobilinogen (Auto) Negative Ur Leukocyte Esterase Negative Urine RBC 3 Urine WBC 1 Ur Squamous Epith Cells 0 Urine Bacteria None Urine Opiates Screen Negative Urine Fentanyl Screen Negative Acetaminophen < 2.0 L Ur Barbiturates Screen Negative U Amphetamin/Meth Scrn Negative U Benzodiazepines Scrn Negative U Cocaine Metab Screen Negative U Marijuana (THC) Screen Negative Ethyl Alcohol < 3.0 07/24/24 07/24/24 07/24/24 00:45 05:05 05:12 WBC 12.4 H RBC 5.58 H Hgb 15.7 Hct 45.5 MCV 82 MCH 28.1 MCHC 34.5 RDW Std Deviation 38.7 Plt Count 229 D Neut % (Auto) 70 Lymph % (Auto) 23 [place] % (Auto) 6 Eos % (Auto) 0 Baso % (Auto) 0 Neut # (Auto) 8.7 H Lymph # (Auto) 2.9 [place] # (Auto) 0.7 Eos # (Auto) 0.1 Baso # (Auto) 0.0 Immature Gran # (Auto) 0.07 H Absolute Nucleated RBC 0.00 Immature Gran % 1 H Nucleated RBC % 0 Smear Path Review ESR PT 12.4 H INR 1.1 APTT D-Dimer Puncture Site Left Radial ABG pH 7.53 H ABG pCO2 25 L D ABG pO2 188 H D ABG HCO3 21 ABG O2 Saturation 99 H ABG Base Excess 0 FiO2 75 Sodium 129 L Potassium 5.3 H D Chloride 96 L Carbon Dioxide 24.6 Anion Gap 8 BUN 15 Creatinine 0.7 Estim Creat Clear Calc 83.0 eGFR > 60 BUN/Creatinine Ratio 21 H Glucose [address] Glu mg/dL 105 Hemoglobin A1c 5.3 Calculated Osmolality 260 L Lactic Acid Calcium 7.8 L Corrected Calcium 8.4 L Phosphorus 2.2 L Magnesium 1.8 Total Bilirubin 0.6 AST 45 H ALT 20 Alkaline Phosphatase 91 D Ammonia < 10 L Total Creatine Kinase Troponin I C-Reactive Prot, Quant B-Natriuretic Peptide Total Protein 5.9 Albumin 3.2 L D Globulin 2.7 Albumin/Globulin Ratio 1.2 Triglycerides 102 Cholesterol 139 LDL Cholesterol, Calc 68 HDL Cholesterol 51 Cholesterol/HDL Ratio 2.7 L Procalcitonin TSH Free T4 Ur Collection Type Urine Color Urine Clarity Urine pH Ur Specific [place] Urine Protein Urine Glucose (UA) Urine Ketones Urine Blood Urine Nitrite Urine Bilirubin Urine Urobilinogen (Auto) Ur Leukocyte Esterase Urine RBC Urine WBC Ur Squamous Epith Cells Urine Bacteria Urine Opiates Screen Urine Fentanyl Screen Acetaminophen Ur Barbiturates Screen U Amphetamin/Meth Scrn U Benzodiazepines Scrn U Cocaine Metab Screen U Marijuana (THC) Screen Ethyl Alcohol 07/24/24 08:00 WBC RBC Hgb Hct MCV MCH MCHC RDW Std Deviation Plt Count Neut % (Auto) Lymph % (Auto) [place] % (Auto) Eos % (Auto) Baso % (Auto) Neut # (Auto) Lymph # (Auto) [place] # (Auto) Eos # (Auto) Baso # (Auto) Immature Gran # (Auto) Absolute Nucleated RBC Immature Gran % Nucleated RBC % Smear Path Review ESR PT INR APTT D-Dimer Puncture Site Left Radial ABG pH 7.51 H ABG pCO2 31 L ABG pO2 161 H D ABG HCO3 24 ABG O2 Saturation 99 H ABG Base Excess 2 FiO2 60 Sodium Potassium Chloride Carbon Dioxide Anion Gap BUN Creatinine Estim Creat Clear Calc eGFR BUN/Creatinine Ratio Glucose Estimated Ave Glu mg/dL Hemoglobin A1c Calculated Osmolality Lactic Acid Calcium Corrected Calcium Phosphorus Magnesium Total Bilirubin AST ALT Alkaline Phosphatase Ammonia Total Creatine Kinase Troponin I C-Reactive Prot, Quant B-Natriuretic Peptide Total Protein Albumin Globulin Albumin/Globulin Ratio Triglycerides Cholesterol LDL Cholesterol, Calc HDL Cholesterol Cholesterol/HDL Ratio Procalcitonin TSH Free T4 Ur Collection Type Urine Color Urine Clarity Urine pH Ur Specific [place] Urine Protein Urine Glucose (UA) Urine Ketones Urine Blood Urine Nitrite Urine Bilirubin Urine Urobilinogen (Auto) Ur Leukocyte Esterase Urine RBC Urine WBC Ur Squamous Epith Cells Urine Bacteria Urine Opiates Screen Urine Fentanyl Screen Acetaminophen Ur Barbiturates Screen U Amphetamin/Meth Scrn U Benzodiazepines Scrn U Cocaine Metab Screen U Marijuana (THC) Screen Ethyl Alcohol ABG Interpretation ABG results: 07/23/24 07/24/24 07/24/24 23:07 05:12 08:00 ABG pH 7.44 7.53 H 7.51 H ABG pCO2 35 25 L D 31 L ABG pO2 213 H 188 H D 161 H D ABG HCO3 24 21 24 ABG O2 Saturation 99 H 99 H 99 H ABG Base Excess 0 0 2 Quality Measures Quality Measures none Assessment & Plan Assessment Current Active Medications: Generic Name Dose Route Start Last Admin Trade Name Freq PRN Reason Stop Dose Admin Acetaminophen 650 mg 07/23/24 23:36 Acetaminophen Supp 650 Mg Supp [place] 08/22/24 23:35 Q6HR PRN [id number] Aspirin 81 mg 07/24/24 09:00 07/24/24 10:30 Aspirin 81 Mg Chew PO 08/23/24 08:59 81 mg QDAY TANYA Administration Famotidine 20 mg 07/24/24 09:00 07/24/24 10:30 Famotidine Inj 10 Mg/Ml Vial 2 Ml IVP 08/23/24 08:59 20 mg Q12HR TANYA Administration Heparin Sodium (Porcine) 5,000 unit 07/24/24 06:00 07/24/24 05:26 Heparin Sod Inj 5000 Unit/Ml Vial SC 08/07/24 05:59 5,000 unit Q8HR TANYA Administration Sodium Chloride 1,000 mls @ 100 mls/hr 07/23/24 21:00 07/24/24 10:31 Ns IV 08/22/24 20:59 100 mls/hr Q10H TANYA Administration Fentanyl Citrate 2,500 mcg in 250 mls @ 2.5 mls/hr 07/23/24 23:38 Sublimaze Inj 2,500 Mcg/250 Ml Bag IV 07/28/24 23:37 .Q24H PRN PER PROTOCOL Protocol 25 MCG/HR Piperacillin/Tazobactam/Dextrose 3.375 gm in 50 mls @ 100 mls/hr 07/23/24 23:53 07/24/24 05:29 Zosyn IV 07/30/24 23:52 100 mls/hr Q8HR TANYA Administration Propofol 1,000 mg in 100 mls @ 1.885 mls/hr 07/24/24 01:30 07/24/24 10:29 Diprivan Ivpb IV 08/22/24 20:50 20 mcg/kg/min .Q24H PRN 7.539 mls/hr Per Protocol Administration Protocol 5 MCG/KG/MIN Labetalol HCl 10 mg 07/23/24 20:52 Labetalol Inj 5 Mg/Ml Vial 20 Ml IV Q15M PRN HYPER Ondansetron HCl 4 mg 07/23/24 23:44 Ondansetron Inj 2 Mg/Ml Inj 2 Ml IV 08/22/24 23:43 Q4HR PRN NAUSEA OR VOMITING Plan 59-year-old female with past medical history of psych affective disorder, mental disability, IBD, Cervical cancer, and pituitary tumor was admitted to the ICU on 07/23/2024 due to acute hypoxic respiratory failure. RETORT FORKER: #Acute encephalopathy #Stroke rule out Could be due to metabolic versus hypoxic etiology Patient is able to move all her extremities, but did not know patient's baseline as at this time she is currently nonverbal and not able to follow commands which could be related to her mental disability. MRI pending Echo pending Aspirin ordered Neurology consulted [facility]: #Hypertensive emergency Patient came in and blood pressure was in the 200s over 100s Patient's blood pressure today in the 120s over 70s Respiratory: #Acute hypoxic respiratory failure #Community-acquired pneumonia #Pulmonary edema Patient came in with acute hypoxic respiratory failure and was intubated, but today she extubated herself and is saturating well on oxime mask Patient is accessory that she will initially bilateral opacifications which did look like pulmonary edema. Chest x-ray today that showed improvement Will continue with Zosyn for now Sputum culture pending Renal: #Hypoosmolar hyponatremia Sodium 129 today Most likely of psychiatric disorder Will continue to monitor GI: #Hx of IBD Stable for now Endo: Stable Heme: #Leukocytosis WBCs are downtrending Could be reactive or infectious ID: #Community-acquired pneumonia WBCs are downtrending Will continue with Zosyn for now Hospital Maintenance: Diet: NPO DVT ppx: Heparin subcu GI ppx: not indicated IV lines: PIV Aldana: aldana cath Code status: Full code Dispo: ICU due to AHRF Case disclosed with Attending Dr. Tashi Sabillon PGY1 Attending Provider Attestation/Addendum Patient seen and examined. Discussed with resident. In brief this is a 59-year-old female admitted overnight for acute hypoxic respiratory failure status post intubation. She appears to have developed flash pulmonary edema requiring intubation in the ER. This morning her sedation was held to evaluate her underlying neurological status and she did unfortunately self extubate. Her chest x-ray when compared to yesterday is greatly improved. There is concern for some additional component of aspiration pneumonia. For which she is on antibiotics. There is some mild hyponatremia. She has been started on medications for her blood pressure. On arrival initially there was concern for the possibility of stroke given her altered mentation and her severe blood pressure elevation. However currently she appears awake and able to mobilize all 4 extremities. She is doing well off of mechanical ventilation. She does have a history of developmental delay. Case discussed with ICU team Labs, imaging and records reviewed ~40ccmin required for evaluation, exam, review, intervention, discussion and formulation of plan of care for this 59-year-old female at high risk for further ongoing decompensation
[2024-07-24 14:02] LABS: Albumin, Serum 3.3 gm/dL (3.5-5.0); Anion Gap 5 (7-16); BUN/Creatinine Ratio 20 Ratio (12-20); Blood Urea Nitrogen 14 mg/dL (9-23); Calcium (Corrected) 8.6 mg/dL (8.5-10.1); Carbon Dioxide 25.7 mMol/L (20.0-31.0); Chloride 97 mMol/L (98-107); Creatinine (Component) 0.7 mg/dL (0.6-1.3); Glucose 118 mg/dL (74-106); Osmolality,Calculated 258 (275-295); Phosphorous 3.5 mg/dL (2.4-5.1); Potassium 3.9 mMol/L (3.4-5.1); Sodium 128 mMol/L (136-145); eGFR > 60 See Note
--- NOTE | 2024-07-24 14:52 | PCS.ST ---
[employer] attemtped swallow eval. Pt refusing to participate. Tele-speech [employer] will attempt swallow evaluation tomorrow morning.
--- NOTE | 2024-07-24 15:40 | PC.SS ---
Initial assessment: this is 59 year old female admitted to ICU for AHRF and stroke R/o. [facility] Confirmed address on facesheet. Patient is aligned with [facility] for services, assigned director of casework is Jaquan Liriano. Patient is not conserved. Patient able to ambulate with minimal assistance per prison staff. Patient has gait belt and helmet at the prison. Patient PCP is Segun Bray at [facility]. Patient diagnosed with schizoeffective disorder, depression type and has hallucination/delusions per prison staff, which they report is patient's baseline. Patient is aligned with [facility] and seeing they psychiatrist for medication management. Patient also reported to be mild developmentally delayed. Patient prison contact is person is Laurel Edward or alf rooming house operator Laure Nesbitt . Patient may require transport services at time of discharge if prison unable to accommodate. D/c plan: prison Next of kin: [facility]-Jaquan Liriano [phone] alf: Laurel Edward or alf rooming house operator Laure Nesbitt
--- NOTE | 2024-07-24 16:20 | PD.RESPRO ---
Documentation for date of: 07/24/24 Patient evaluated at the bedside, currently in ICU, received ICU downgrade and off in the afternoon, caregiver is present at the bedside who stated the patient is less conversational for her, which is far from baseline. The patient is able to move all 4 extremities on command eye opening positive, tracking people in room, but did not verbally respond to any questions though per RN, stated that patient verbally asked him for a pillow. Patient had self extubated herself this morning, currently saturating well on room air, patient was intubated in the ER following inability to protect airway and poor mental status. Likely hypertensive emergency leading to flash pulmonary edema and altered mental status, workup for stroke was initiated, pending MRI brain. Plan of care discussed with attending Chiqui CASTREJON Subjective Subjective Interval history: No overnight events. Patient seen and examined at bedside, resting comfortably. Patient has history of behavioral problems, poorly responsive at baseline. Patient alert and oriented to self, answers questions appropriately when patient chooses to answer. Cannot make needs known. Does not have any specific complaints. Patient downgraded from ICU today. Patient has no IVs in place, will use p.o. medications as able. Exam Vital Signs Temp Pulse Resp BP Pulse Ox O2 Del Method FiO2 95.6 F L 62 15 109/62 99 Mechanical Ventilation 35 07/24/24 04:00 07/24/24 12:45 07/24/24 04:00 07/24/24 12:45 07/24/24 12:45 07/24/24 04:00 07/24/24 09:57 Narrative Exam PE: Gen: Well-developed and well-nourished. Poorly cooperative. HEENT: NCAT, PERRLA, EOMI, MMM, anicteric conjunctivae. CVS: normal S1 and S2. RRR. No M/R/G. Resp: Bibasilar crackles. Abd: soft, non-tender, non-distended. MSK: Good ROM in BUE & BLE. No edema or rash. Neuro: CN II-XII grossly intact. Strength 5/5 in BUE & BLE. Alert and oriented x1, able to make needs known, baseline for patient. Objective Labs 07/24/24 05:05 07/24/24 13:00 Labs: Laboratory Results - last 24 hr 07/23/24 07/23/2425 20:45 21:45 23:07 WBC 13.3 H RBC 6.09 H Hgb 17.2 H Hct 49.9 H MCV 82 MCH 28.2 MCHC 34.5 RDW Std Deviation 39.0 Plt Count 317 Neut % (Auto) 47 Lymph % (Auto) 44 [place] % (Auto) 7 Eos % (Auto) 2 Baso % (Auto) 1 Neut # (Auto) 6.2 Lymph # (Auto) 5.9 H [place] # (Auto) 0.9 H Eos # (Auto) 0.2 Baso # (Auto) 0.1 Immature Gran # (Auto) 0.07 H Absolute Nucleated RBC 0.00 Immature Gran % 1 H Nucleated RBC % 0 Smear Path Review Cancelled ESR 23 PT 12.0 INR 1.1 APTT 34.0 D-Dimer 592 Puncture Site Left Radial ABG pH 7.44 ABG pCO2 35 ABG pO2 213 H ABG HCO3 24 ABG O2 Saturation 99 H ABG Base Excess 0 FiO2 21 Sodium 125 L Potassium 4.7 Chloride 92 L Carbon Dioxide 26.0 Anion Gap 7 BUN 16 Creatinine 0.8 Estim Creat Clear Calc 72.6 eGFR > 60 BUN/Creatinine Ratio 20 [address]ucose [address] Glu mg/dL Hemoglobin A1c Calculated Osmolality 254 L Lactic Acid 1.7 Calcium 8.4 Corrected Calcium 8.4 L Phosphorus Magnesium 1.8 Total Bilirubin 0.4 AST 32 ALT 19 Alkaline Phosphatase 116 Ammonia Total Creatine Kinase 65 Troponin I 0.035 C-Reactive Prot, Quant < 0.5 B-Natriuretic Peptide 153 H Total Protein 7.4 Albumin 4.0 Globulin 3.4 Albumin/Globulin Ratio 1.2 Triglycerides Cholesterol LDL Cholesterol, Calc HDL Cholesterol Cholesterol/HDL Ratio Procalcitonin 0.06 TSH 4.55 Free T4 0.77 L Ur Collection Type Clean Catch Urine Color Lt-Yellow Urine Clarity Clear Urine pH 7.0 Ur Specific [place] 1.011 Urine Protein Negative Urine Glucose (UA) Negative Urine Ketones Negative Urine Blood Negative Urine Nitrite Negative Urine Bilirubin Negative Urine Urobilinogen (Auto) Negative Ur Leukocyte Esterase Negative Urine RBC 3 Urine WBC 1 Ur Squamous Epith Cells 0 Urine Bacteria None Urine Opiates Screen Negative Urine Fentanyl Screen Negative Acetaminophen < 2.0 L Ur Barbiturates Screen Negative U Amphetamin/Meth Scrn Negative U Benzodiazepines Scrn Negative U Cocaine Metab Screen Negative U Marijuana (THC) Screen Negative Ethyl Alcohol < 3.0 07/24/24 07/24/24 07/24/24 00:45 05:05 05:12 WBC 12.4 H RBC 5.58 H Hgb 15.7 Hct 45.5 MCV 82 MCH 28.1 MCHC 34.5 RDW Std Deviation 38.7 Plt Count 229 D Neut % (Auto) 70 Lymph % (Auto) 23 [place] % (Auto) 6 Eos % (Auto) 0 Baso % (Auto) 0 Neut # (Auto) 8.7 H Lymph # (Auto) 2.9 [place] # (Auto) 0.7 Eos # (Auto) 0.1 Baso # (Auto) 0.0 Immature Gran # (Auto) 0.07 H Absolute Nucleated RBC 0.00 Immature Gran % 1 H Nucleated RBC % 0 Smear Path Review ESR PT 12.4 H INR 1.1 APTT D-Dimer Puncture Site Left Radial ABG pH 7.53 H ABG pCO2 25 L D ABG pO2 188 H D ABG HCO3 21 ABG O2 Saturation 99 H ABG Base Excess 0 FiO2 75 Sodium 129 L Potassium 5.3 H D Chloride 96 L Carbon Dioxide 24.6 Anion Gap 8 BUN 15 Creatinine 0.7 Estim Creat Clear Calc 83.0 eGFR > 60 BUN/Creatinine Ratio 21 H Glucose [address] Glu mg/dL 105 Hemoglobin A1c 5.3 Calculated Osmolality 260 L Lactic Acid Calcium 7.8 L Corrected Calcium 8.4 L Phosphorus 2.2 L Magnesium 1.8 Total Bilirubin 0.6 AST 45 H ALT 20 Alkaline Phosphatase 91 D Ammonia < 10 L Total Creatine Kinase Troponin I C-Reactive Prot, Quant B-Natriuretic Peptide Total Protein 5.9 Albumin 3.2 L D Globulin 2.7 Albumin/Globulin Ratio 1.2 Triglycerides 102 Cholesterol 139 LDL Cholesterol, Calc 68 HDL Cholesterol 51 Cholesterol/HDL Ratio 2.7 L Procalcitonin TSH Free T4 Ur Collection Type Urine Color Urine Clarity Urine pH Ur Specific [place] Urine Protein Urine Glucose (UA) Urine Ketones Urine Blood Urine Nitrite Urine Bilirubin Urine Urobilinogen (Auto) Ur Leukocyte Esterase Urine RBC Urine WBC Ur Squamous Epith Cells Urine Bacteria Urine Opiates Screen Urine Fentanyl Screen Acetaminophen Ur Barbiturates Screen U Amphetamin/Meth Scrn U Benzodiazepines Scrn U Cocaine Metab Screen U Marijuana (THC) Screen Ethyl Alcohol 07/24/24 07/24/24 08:00 13:00 WBC RBC Hgb Hct MCV MCH MCHC RDW Std Deviation Plt Count Neut % (Auto) Lymph % (Auto) [place] % (Auto) Eos % (Auto) Baso % (Auto) Neut # (Auto) Lymph # (Auto) [place] # (Auto) Eos # (Auto) Baso # (Auto) Immature Gran # (Auto) Absolute Nucleated RBC Immature Gran % Nucleated RBC % Smear Path Review ESR PT INR APTT D-Dimer Puncture Site Left Radial ABG pH 7.51 H ABG pCO2 31 L ABG pO2 161 H D ABG HCO3 24 ABG O2 Saturation 99 H ABG Base Excess 2 FiO2 60 Sodium 128 L Potassium 3.9 D Chloride 97 L Carbon Dioxide 25.7 Anion Gap 5 L BUN 14 Creatinine 0.7 Estim Creat Clear Calc 83.0 eGFR > 60 BUN/Creatinine Ratio 20 Glucose [address] Glu mg/dL Hemoglobin A1c Calculated Osmolality 258 L Lactic Acid Calcium 8.0 L Corrected Calcium 8.6 Phosphorus 3.5 Magnesium Total Bilirubin AST ALT Alkaline Phosphatase Ammonia Total Creatine Kinase Troponin I C-Reactive Prot, Quant B-Natriuretic Peptide Total Protein Albumin 3.3 L Globulin Albumin/Globulin Ratio Triglycerides Cholesterol LDL Cholesterol, Calc HDL Cholesterol Cholesterol/HDL Ratio Procalcitonin TSH Free T4 Ur Collection Type Urine Color Urine Clarity Urine pH Ur Specific [place] Urine Protein Urine Glucose (UA) Urine Ketones Urine Blood Urine Nitrite Urine Bilirubin Urine Urobilinogen (Auto) Ur Leukocyte Esterase Urine RBC Urine WBC Ur Squamous Epith Cells Urine Bacteria Urine Opiates Screen Urine Fentanyl Screen Acetaminophen Ur Barbiturates Screen U Amphetamin/Meth Scrn U Benzodiazepines Scrn U Cocaine Metab Screen U Marijuana (THC) Screen Ethyl Alcohol ABG Interpretation ABG results: 07/23/24 07/24/24 07/24/24 23:07 05:12 08:00 ABG pH 7.44 7.53 H 7.51 H ABG pCO2 35 25 L D 31 L ABG pO2 213 H 188 H D 161 H D ABG HCO3 24 21 24 ABG O2 Saturation 99 H 99 H 99 H ABG Base Excess 0 0 2 Quality Measures Quality Measures none Assessment & Plan Assessment Current Active Medications: Generic Name Dose Route Start Last Admin Trade Name Freq PRN Reason Stop Dose Admin Acetaminophen 650 mg 07/23/24 23:36 Acetaminophen Supp 650 Mg Supp MI 08/22/24 23:35 Q6HR PRN [id number] Aspirin 81 mg 07/24/24 09:00 07/24/24 10:30 Aspirin 81 Mg Chew PO 08/23/24 08:59 81 mg QDAY TANYA Administration Famotidine 20 mg 07/24/24 09:00 07/24/24 10:30 Famotidine Inj 10 Mg/Ml Vial 2 Ml IVP 08/23/24 08:59 20 mg Q12HR TANYA Administration Heparin Sodium (Porcine) 5,000 unit 07/24/24 06:00 07/24/24 16:08 Heparin Sod Inj 5000 Unit/Ml Vial SC 08/07/24 05:59 5,000 unit Q8HR TANYA Administration Fentanyl Citrate 2,500 mcg in 250 mls @ 2.5 mls/hr 07/23/24 23:38 Sublimaze Inj 2,500 Mcg/250 Ml Bag IV 07/28/24 23:37 .Q24H PRN PER PROTOCOL Protocol 25 MCG/HR Piperacillin/Tazobactam/Dextrose 3.375 gm in 50 mls @ 100 mls/hr 07/23/24 23:53 07/24/24 05:29 Zosyn IV 07/30/24 23:52 100 mls/hr Q8HR TANYA Administration Propofol 1,000 mg in 100 mls @ 1.885 mls/hr 07/24/24 01:30 07/24/24 10:29 Diprivan Ivpb IV 08/22/24 20:50 20 mcg/kg/min .Q24H PRN 7.539 mls/hr Per Protocol Administration Protocol 5 MCG/KG/MIN Labetalol HCl 10 mg 07/24/24 15:40 Labetalol Inj 5 Mg/Ml Vial 20 Ml IVP 08/23/24 15:44 Q6H PRN HTN Ondansetron HCl 4 mg 07/23/24 23:44 Ondansetron Inj 2 Mg/Ml Inj 2 Ml IV 08/22/24 23:43 Q4HR PRN NAUSEA OR VOMITING Plan 59-year-old female with past medical history of psych affective disorder, mental disability, IBD, cervical cancer, and pituitary tumor was admitted to the ICU on 07/23/2024 due to acute hypoxic respiratory failure. Patient self extubated on, was downgraded to floors for further management. #Acute hypoxic respiratory failure, resolved #Community-acquired pneumonia #Pulmonary edema, improving Patient came in with acute hypoxic respiratory failure and was intubated, but the following day she extubated herself and is saturating well on room air. Patient initial chest x-ray showed bilateral opacifications, concerning for diffuse community-acquired pneumonia versus pulmonary edema. Pulmonary edema possibly secondary to hypertensive emergency. Following chest x-ray showed improvement. Patient removed all IV lines, refusing to allow anyone. Blood, urine, sputum cultures taken. -Follow-up blood, urine, sputum culture -Augmentin 875 p.o. twice daily -Hypertensive emergency treatment as below #Acute encephalopathy (resolved) secondary to CVA versus hypoxia versus metabolic abnormality Could be due to metabolic versus hypoxic etiology. Patient required intubation due to hypoxia and AMS, self extubated the following day. Patient currently at baseline mental status, A&O x 1, able to make needs known, poorly responsive/cooperative. Neurology has been consulted. CT head negative, CTA head/neck showed medication stenosis right posterior cerebral artery, no LVO. U tox negative. -MRI pending -Echo pending -Aspirin 81 mg p.o. daily -Neurology consulted, appreciate recommendations - Manage acute hypoxic respiratory failure as above #Hypertensive emergency, resolved Patient came in and blood pressure was in the 200s over 100s. The following day patient's blood pressure today in the 120s over 70s. No specific treatment was given. - Monitor closely - Labetalol as needed for SBP greater than 180 #Hypoosmolar hyponatremia, chronic Patient has history of fluctuating low sodium, was 125 on presentation. Following day patient's improved 129. Possibly due to psychiatric disorder, and/or psychiatric meds. -Salt tabs 1 g p.o. twice daily -Monitor daily labs #Schizoaffective disorder, patient history #Intellectual disability, patient history Patient has history as stated. Lives in a half-way. At baseline patient is poorly cooperative but able to make needs known. - Consider resuming home meds as appropriate #Hx of IBD Stable for now Diet: NPO pending swallow screen DVT ppx: Heparin subcu GI ppx: not indicated IV lines: None, patient removed Aldana: aldana cath Code status: Full code Plan of care discussed with senior resident Dr. Florian PGY?[address] Tompkins. Dao Chan MD PGY?1
--- NOTE | 2024-07-24 20:03 | PC.NURSE ---
Report received from Luis ROSADO, pt arrived to room 354 via bed and transferred to new bed. Attempts made or orient pt unable, jo initiated r/t pt hx of pulling out lines/safety. Call light placed within reach
--- NOTE | 2024-07-24 22:45 | PC.NURSE ---
Contacted Dr. Rabago regarding pt NPO status and if alternative to NaCl and Augmentin needed to be given. Attempts made to complete swallow screen, pt will not drink water shakes head and moves away. to input orders.
[2024-07-24] MEDS: cefTRIAXone/D5w 1gm IV premix 1 GM/50 ML BAG IV (23:24)
[2024-07-25] VITALS (12 sets, daily range): BP systolic 99–122; BP diastolic 53–77; PULSE 57–73; RESP 15–99; TEMP 36.2–37.5; O2SAT 95–98
[2024-07-25] MEDS: HEPARIN SOD INJ 5000 UNIT/ML VIAL SC ×2 (05:05→21:37)
[2024-07-25 05:28] LABS: Basophils % (Auto) 0 % (0-2.5); Eosinophils % (Auto) 0 % (0-10); Hematocrit 39.6 % (36.0-46.0); Hemoglobin 13.7 g/dL (12.0-16.0); Immature Granulocytes % (Auto) 0 % (0-0); Immature Granulocytes Auto 0.04 Thou/mm3 (0.00-0.00); Lymphocytes # (Auto) 2.5 Thou/mm3 (1.0-4.8); Lymphocytes % (Auto) 22 % (10-50); Mean Corpuscular HGB Conc 34.6 g/dl (31.0-37.0); Mean Corpuscular Hemoglobin 28.2 pg (25.0-35.0); Mean Corpuscular Volume 82 fL (80-100); Monocytes % (Auto) 9 % (0-12); Neutrophils # (Auto) 7.8 Thou/mm3 (1.8-7.7); Neutrophils % (Auto) 69 % (37-80); Nucleated Red Blood Cell % 0 /100 WBC (0); Platelet Count 207 Thou/mm3 (140-440); Red Blood Count 4.86 Miln/mm3 (4.00-5.20); White Blood Count 11.4 Thou/mm3 (3.6-11.0)
[2024-07-25 06:12] LABS: Phosphorous 3.1 mg/dL (2.4-5.1)
[2024-07-25 07:24] LABS: INR 1.1 (0.9-1.3); Prothrombin Time 11.7 Seconds (9.0-12.2)
[2024-07-25] MEDS: cefTRIAXone/D5w 1gm IV premix 1 GM/50 ML BAG IV (08:39)
[2024-07-25] MEDS: FAMOTIDINE INJ 10 MG/ML VIAL 2 ML 20 MG IVP ×2 (08:39→20:24)
--- NOTE | 2024-07-25 09:05 | CHAP ---
Patient expressed gratitude for visit and prayer.
--- NOTE | 2024-07-25 09:19 | PC.SS ---
rounding note: Patient from [facility]. [facility] makes all healthcare decisions. Pending echo/MRI
[2024-07-25] MEDS: SODIUM CHLORIDE 1 GM TABLET PO ×2 (10:28→20:27)
[2024-07-25] MEDS: DIVALPROEX SOD DR 500 MG TABLET.DR PO ×2 (10:28→21:38)
[2024-07-25] MEDS: hydrOXYzine HCL 25 MG TABLET 50 MG PO ×2 (10:28→17:57)
[2024-07-25] MEDS: OXYBUTYNIN CHLOR 5 MG TABLET PO (10:28)
[2024-07-25] MEDS: ASPIRIN 81 MG CHEW PO (10:28)
[2024-07-25 10:50] LABS: Alanine Aminotransferase 28 U/L (10-49); Albumin/Globulin Ratio 1.2 (1.2-2.2); Alkaline Phosphatase 73 U/L (46-116); Anion Gap 6 (7-16); Aspartate Amino Transferase 43 U/L (0-34); BUN/Creatinine Ratio 21 Ratio (12-20); Bilirubin,Total 0.4 mg/dL (0.3-1.2); Blood Urea Nitrogen 15 mg/dL (9-23); Calcium 8.1 mg/dL (8.3-10.6); Calcium (Corrected) 8.9 mg/dL (8.5-10.1); Carbon Dioxide 26.9 mMol/L (20.0-31.0); Chloride 99 mMol/L (98-107); Creatinine (Component) 0.7 mg/dL (0.6-1.3); Globulin 2.5 gm/dL (2.3-3.5); Glucose 79 mg/dL (74-106); Osmolality,Calculated 264 (275-295); Potassium 4.2 mMol/L (3.4-5.1); Sodium 132 mMol/L (136-145); Total Protein 5.5 gm/dL (5.7-8.2); eGFR > 60 See Note
--- NOTE | 2024-07-25 13:29 | ESPR_ITS ---
<Statement entered by Criselda Ledbetter MD - 07/25/24 15:23> No acute overnight events. Patient was seen and examined at the bedside. Leukocytosis has improved. CMP notable for hyponatremia (Na 128); patient is refusing oral sodium tablets. Mild hypokalemia was noted and has been corrected. Patient refused oral Augmentin; ceftriaxone has been initiated. Continuing aspirin. Blood pressure is currently well controlled. Blood cultures remain negative at 24 hours. Urine cultures are pending. Neurology consulted and assessed low suspicion for acute stroke; MRI was canceled. Echocardiogram will be obtained. Neurology recommended resuming home psych medications. Plan for tmw. Continue ceftriaxone and aspirin. Continue psych meds Follow Echo Monitor hemodynamics closely. Repeat sodium levels to assess correction. If clinical status continues to improve and patient remains hemodynamically stable, anticipate discharge within the next 24 hours. I discussed with and supervised the internet database specialist physician who took care of this patient. I personally saw and examined the patient and discussed the assessment and plan with the entire medicine team, including my attending , I agree with the assessment and plan as documented below Criselda Ledbetter M.D. PGY-2 Disclaimer: Despite multiple revisions, due to the dictation software being used, the document bellow may not be free of grammatical errors including phonetic/typographic errors. However, this does not deter from our commitment to providing health care in the patient's best interest in mind. Documentation for date of: 07/25/24 Subjective Subjective Interval history: No overnight events. Patient seen examined at bedside, resting comfortably. Patient is at baseline, but does not verbally answer questions or cooperate most of the time. Resumed home psych meds per neuroconsult. Pending echo. Exam Vital Signs Temp Pulse Resp BP Pulse Ox O2 Del Method FiO2 97.7 F 62 18 110/55 L 96 Room Air 35 07/25/24 12:00 07/25/24 12:00 07/25/24 12:07/25/24 12:07/25/24 12:07/25/24 12:07/24/24 09:57 Narrative Exam PE: Gen: Well-developed and well-nourished. Poorly cooperative. HEENT: NCAT, PERRLA, EOMI, MMM, anicteric conjunctivae. CVS: normal S1 and S2. RRR. No M/R/G. Resp: Bibasilar crackles, improved. Abd: soft, non-tender, non-distended. MSK: Good ROM in BUE & BLE. No edema or rash. Neuro: CN II-XII grossly intact. Strength 5/5 in BUE & BLE. Alert and oriented x1, able to make needs known, baseline for patient. Objective Labs 07/25/24 04:24 07/25/24 09:57 Labs: Laboratory Results - last 24 hr 07/24/24 07/25/24 07/25/24 13:00 04:24 06:48 WBC 11.4 H RBC 4.86 Hgb 13.7 D Hct 39.6 MCV 82 MCH 28.2 MCHC 34.6 RDW Std Deviation 40.0 Plt Count 207 Neut % (Auto) 69 Lymph % (Auto) 22 [place] % (Auto) 9 Eos % (Auto) 0 Baso % (Auto) 0 Neut # (Auto) 7.8 H Lymph # (Auto) 2.5 [place] # (Auto) 1.0 H Eos # (Auto) 0.0 Baso # (Auto) 0.0 Immature Gran # (Auto) 0.04 H Absolute Nucleated RBC 0.00 Immature Gran % 0 Nucleated RBC % 0 PT 11.7 INR 1.1 Sodium 128 L Potassium 3.9 D Chloride 97 L Carbon Dioxide 25.7 Anion Gap 5 L BUN 14 Creatinine 0.7 Estim Creat Clear Calc 83.0 eGFR > 60 BUN/Creatinine Ratio 20 Glucose 118 H Calculated Osmolality 258 L Calcium 8.0 L Corrected Calcium 8.6 Phosphorus 3.5 3.1 Magnesium 2.0 Total Bilirubin AST ALT Alkaline Phosphatase Total Protein Albumin 3.3 L Globulin Albumin/Globulin Ratio 07/25/24 09:57 WBC RBC Hgb Hct MCV MCH MCHC RDW Std Deviation Plt Count Neut % (Auto) Lymph % (Auto) [place] % (Auto) Eos % (Auto) Baso % (Auto) Neut # (Auto) Lymph # (Auto) [place] # (Auto) Eos # (Auto) Baso # (Auto) Immature Gran # (Auto) Absolute Nucleated RBC Immature Gran % Nucleated RBC % PT INR Sodium 132 L Potassium 4.2 Chloride 99 Carbon Dioxide 26.9 Anion Gap 6 L BUN 15 Creatinine 0.7 Estim Creat Clear Calc 83.0 eGFR > 60 BUN/Creatinine Ratio 21 H Glucose 79 Calculated Osmolality 264 L Calcium 8.1 L Corrected Calcium 8.9 Phosphorus Magnesium Total Bilirubin 0.4 AST 43 H ALT 28 Alkaline Phosphatase 73 Total Protein 5.5 L Albumin 3.0 L Globulin 2.5 Albumin/Globulin Ratio 1.2 ABG Interpretation ABG results: 07/23/24 07/24/24 07/24/24 23:07 05:12 08:00 ABG pH 7.44 7.53 H 7.51 H ABG pCO2 35 25 L D 31 L ABG pO2 213 H 188 H D 161 H D ABG HCO3 24 21 24 ABG O2 Saturation 99 H 99 H 99 H ABG Base Excess 0 0 2 Quality Measures Quality Measures VTE prophylaxis Assessment & Plan Assessment Current Active Medications: Generic Name Dose Route Start Last Admin Trade Name Freq PRN Reason Stop Dose Admin Acetaminophen 650 mg 07/23/24 23:36 Acetaminophen Supp 650 Mg Supp NM 08/22/24 23:35 Q6HR PRN [id number] Aripiprazole 30 mg 07/25/24 21:00 Aripiprazole 5 Mg Tablet PO 08/24/24 20:59 HS TANYA Aspirin 81 mg 07/24/24 09:00 07/25/24 10:28 Aspirin 81 Mg Chew PO 08/23/24 08:59 81 mg QDAY TANYA Administration Divalproex Sodium 500 mg 07/25/24 09:30 07/25/24 10:[address] 500 Mg Tablet.Dr PO 08/24/24 09:29 500 mg Q12H TANYA Administration Famotidine 20 mg 07/24/24 09:00 07/25/24 08:39 Famotidine Inj 10 Mg/Ml Vial 2 Ml IVP 08/23/24 08:59 20 mg Q12HR ATNYA Administration Fluoxetine HCl 20 mg 07/26/24 09:00 Fluoxetine Hcl 10 Mg Capsule PO 08/25/24 08:59 DAILY TANYA Heparin Sodium (Porcine) 5,000 unit 07/24/24 06:00 07/25/24 05:05 Heparin Sod Inj 5000 Unit/Ml Vial SC 08/07/24 05:59 5,000 unit Q8HR TANYA Administration Hydroxyzine HCl 50 mg 07/25/24 09:30 07/25/24 10:28 Hydroxyzine Hcl 25 Mg Tablet PO 08/24/24 09:29 50 mg Q8H TANYA Administration Ceftriaxone Sodium/Dextrose 1 gm in 50 mls @ 100 mls/hr 07/24/24 22:51 07/25/24 08:39 Rocephin/D5w 1gm Iv Premix IV 07/31/24 22:50 100 mls/hr QDAY TANYA Administration Labetalol HCl 10 mg 07/24/24 15:40 Labetalol Inj 5 Mg/Ml Vial 20 Ml IVP 08/23/24 15:44 Q6H PRN HTN Oxybutynin Chloride 5 mg 07/25/24 09:30 07/25/24 10:28 Oxybutynin Chlor 5 Mg Tablet PO 08/24/24 09:29 5 mg DAILY TANYA Administration Xanomeline-Trospium 1 ea 07/25/24 21:00 [Cobenfy] 100-20 Mg PO 08/24/24 20:59 Capsule HS TANYA Protocol Linaclotide [Linzess 1 ea 07/25/24 10:15 07/25/24 10:45 ] 145 Mcg Capsule PO 08/24/24 10:14 Not Given DAILY TANYA Protocol Sodium Chloride 1 gm 07/24/24 21:00 07/25/24 10:28 Sodium Chloride 1 Gm Tablet PO 08/23/24 20:59 1 gm BID TANYA Administration Plan 59-year-old female with past medical history of psych affective disorder, mental disability, IBD, cervical cancer, and pituitary tumor was admitted to the ICU on 07/23/2024 due to acute hypoxic respiratory failure. Patient self extubated on, was downgraded to floors for further management. #Acute hypoxic respiratory failure, resolved #Community-acquired pneumonia #Pulmonary edema, improving Patient came in with acute hypoxic respiratory failure and was intubated, but the following day she extubated herself and is saturating well on room air. Patient initial chest x-ray showed bilateral opacifications, concerning for diffuse community-acquired pneumonia versus pulmonary edema. Pulmonary edema possibly secondary to hypertensive emergency. Following chest x-ray showed improvement. Patient removed all IV lines, refusing to allow anyone. Blood, urine, sputum cultures taken. -Follow-up blood, urine, sputum culture -Augmentin 875 p.o. twice daily -Hypertensive emergency treatment as below #Acute encephalopathy (resolved) secondary to CVA versus hypoxia versus metabolic abnormality Could be due to metabolic versus hypoxic etiology. Patient required intubation due to hypoxia and AMS, self extubated the following day. Patient currently at baseline mental status, A&O x 1, able to make needs known, poorly responsive/cooperative. Neurology has been consulted. CT head negative, CTA head/neck showed medication stenosis right posterior cerebral artery, no LVO. U tox negative, ammonia negative, no significant electrolyte abnormalities. Patient was not hypoglycemic. Neurology stated CVA extremely unlikely, no need for MRI. Suspect encephalopathy due to hypoxia. -Echo pending -Aspirin 81 mg p.o. daily -Neurology consulted, appreciate recommendations -Manage acute hypoxic respiratory failure as above #Hypertensive emergency, resolved Patient came in and blood pressure was in the 200s over 100s. The following day patient's blood pressure today in the 120s over 70s. No specific treatment was given. - Monitor closely - Labetalol as needed for SBP greater than 180 #Hypoosmolar hyponatremia, chronic Patient has history of fluctuating low sodium, was 125 on presentation. Following day patient's improved 129. Possibly due to psychiatric disorder, and/or psychiatric meds. -Salt tabs 1 g p.o. twice daily -Monitor daily labs #Schizoaffective disorder, patient history #Intellectual disability, patient history Patient has history as stated. Lives in a fpc. At baseline patient is poorly cooperative but able to make needs known. - Resume home psych meds #Hx of IBD Stable for now Diet: Dysphagia 1 DVT ppx: Heparin subcu GI ppx: not indicated Lines: aldana cath, PIV Code status: Full code Plan of care discussed with senior resident Dr. Ledbetter PGY?[address] Tompkins. Dao Chan MD PGY?1
--- NOTE | 2024-07-25 13:35 | EKG_ITS ---
[facility] Test Date: 2024-07-25 Pat Name: LOUIS BLANCO [facility] Relationship Associate: YARELIS : 1965 Requested By: Criselda Ledbetter Order Number: [id number] Reading MD: Criselda Ledbetter Measurements Intervals [place] Rate: 60 P: 50 AL: 153 QRS: -21 QRSD: 80 T: 23 QT: 408 QTc: 408 Interpretive Statements SINUS RHYTHM BORDERLINE LEFT AXIS DEVIATION [QRS AXIS < -20] NONSPECIFIC T-WAVE ABNORMALITY Compared to ECG 07/29/2019 10:34:13 No significant changes /store/S0/[id number]
--- NOTE | 2024-07-25 15:09 | PD.RESPRO ---
Documentation for date of: 07/25/24 Subjective Subjective Interval history: No overnight events Today at bedside patient sleeping comfortably in bed after being woke up patient is alert, not speaking only when she wants to do it. Per neurology recommendations patient can continue his psych medications due to patient is back to mentation baseline and no need for brain MRI due to most likely altered mental status secondary to hypoxia in the setting of flash pulmonary edema secondary to hypertensive emergency. Exam Vital Signs Temp Pulse Resp BP Pulse Ox O2 Del Method FiO2 97.7 F 62 18 110/55 L 96 Room Air 35 07/25/24 12:00 07/25/24 12:00 07/25/24 12:00 07/25/24 12:00 07/25/24 12:00 07/25/24 12:00 07/24/24 09:57 Narrative Exam General: Frail, sleeping comfortably, in bed easily arousable,nonverbal HEENT: NC/AT, PERRL, EOMI, moist mucous membranes, scalp laceration Neck: Supple, No masses, No adenopathy, carotid pulse 2+ bilaterally without bruits, No JVD, normal range of motion. Chest: Symmetrical, atraumatic, and with equal expansion , Nontender on palpation no deformity and no crepitus. CVS: S1 and S2 present, Regular rate and rhythm, No murmurs, rubs or gallops perceived during auscultation. Lungs: No intercostal or subcostal retraction. Abdomen : Soft, no tenderness to palpation, no guarding ,no rebound, +BS Extremities: No edema, warm well perfused, normal tone and ROM, strength and sensation intact, cap refill less than 2, +2 dp equal bilaterally, able to move all 4 extremities spontaneously. Skin: Scalp laceration Neuro: AOx0, difficult to perform a full neurological exam due to patient does not cooperate Psych: Difficult to assess due patient baseline mental status Objective Labs 07/26/24 04:48 07/26/24 04:48 Labs: Laboratory Results - last 24 hr 07/25/24 07/25/24 07/25/24 04:24 06:48 09:57 WBC 11.4 H RBC 4.86 Hgb 13.7 D Hct 39.6 MCV 82 MCH 28.2 MCHC 34.6 RDW Std Deviation 40.0 Plt Count 207 Neut % (Auto) 69 Lymph % (Auto) 22 Preble % (Auto) 9 Eos % (Auto) 0 Baso % (Auto) 0 Neut # (Auto) 7.8 H Lymph # (Auto) 2.5 Preble # (Auto) 1.0 H Eos # (Auto) 0.0 Baso # (Auto) 0.0 Immature Gran # (Auto) 0.04 H Absolute Nucleated RBC 0.00 Immature Gran % 0 Nucleated RBC % 0 PT 11.7 INR 1.1 Sodium 132 L Potassium 4.2 Chloride 99 Carbon Dioxide 26.9 Anion Gap 6 L BUN 15 Creatinine 0.7 Estim Creat Clear Calc 83.0 eGFR > 60 BUN/Creatinine Ratio 21 H Glucose 79 Calculated Osmolality 264 L Calcium 8.1 L Corrected Calcium 8.9 Phosphorus 3.1 Magnesium 2.0 Total Bilirubin 0.4 AST 43 H ALT 28 Alkaline Phosphatase 73 Total Protein 5.5 L Albumin 3.0 L Globulin 2.5 Albumin/Globulin Ratio 1.2 ABG Interpretation ABG results: 07/23/24 07/24/24 07/24/24 23:07 05:12 08:00 ABG pH 7.44 7.53 H 7.51 H ABG pCO2 35 25 L D 31 L ABG pO2 213 H 188 H D 161 H D ABG HCO3 24 21 24 ABG O2 Saturation 99 H 99 H 99 H ABG Base Excess 0 0 2 Quality Measures Quality Measures none Assessment & Plan Assessment Current Active Medications: Generic Name Dose Route Start Last Admin Trade Name Freq PRN Reason Stop Dose Admin Acetaminophen 650 mg 07/23/24 23:36 Acetaminophen Supp 650 Mg Supp TX 08/22/24 23:35 Q6HR PRN [id number] Aripiprazole 30 mg 07/25/24 21:00 Aripiprazole 5 Mg Tablet PO 08/24/24 20:59 HS TANYA Aspirin 81 mg 07/24/24 09:00 07/25/24 10:28 Aspirin 81 Mg Chew PO 08/23/24 08:59 81 mg QDAY TANYA Administration Divalproex Sodium 500 mg 07/25/24 09:30 07/25/24 10:[address] 500 Mg Tablet.Dr PO 08/24/24 09:29 500 mg Q12H TANYA Administration Famotidine 20 mg 07/24/24 09:00 07/25/24 08:39 Famotidine Inj 10 Mg/Ml Vial 2 Ml IVP 08/23/24 08:59 20 mg Q12HR TANYA Administration Fluoxetine HCl 20 mg 07/26/24 09:00 Fluoxetine Hcl 10 Mg Capsule PO 08/25/24 08:59 DAILY TANYA Heparin Sodium (Porcine) 5,000 unit 07/24/24 06:00 07/25/24 14:25 Heparin Sod Inj 5000 Unit/Ml Vial SC 08/07/24 05:59 Not Given Q8HR TANYA Hydroxyzine HCl 50 mg 07/25/24 09:30 07/25/24 10:28 Hydroxyzine Hcl 25 Mg Tablet PO 08/24/24 09:29 50 mg Q8H TANYA Administration Ceftriaxone Sodium 1 mg/ 50 mls @ 100 mls/hr 07/26/24 09:00 Sodium Chloride IV 08/02/24 08:59 QDAY TANYA Labetalol HCl 10 mg 07/24/24 15:40 Labetalol Inj 5 Mg/Ml Vial 20 Ml IVP 08/23/24 15:44 Q6H PRN HTN Oxybutynin Chloride 5 mg 07/25/24 09:30 07/25/24 10:28 Oxybutynin Chlor 5 Mg Tablet PO 08/24/24 09:29 5 mg DAILY TANYA Administration Xanomeline-Trospium 1 ea 07/25/24 21:00 [Cobenfy] 100-20 Mg PO 08/24/24 20:59 Capsule HS TANYA Protocol Linaclotide [Linzess 1 ea 07/25/24 10:15 07/25/24 10:45 ] 145 Mcg Capsule PO 08/24/24 10:14 Not Given DAILY TANYA Protocol Sodium Chloride 1 gm 07/24/24 21:00 07/25/24 10:28 Sodium Chloride 1 Gm Tablet PO 08/23/24 20:59 1 gm BID TANYA Administration Plan #Acute encephalopathy resolved Possibly secondary to hypoxia versus metabolic Patient has past medical history of schizoaffective disorder and intellectual disability and before coming to the ED was presenting altered mental status and hypoxia requiring intubation and admission to the ICU When patient was evaluated this morning in the ICU was sedated and responding and withdrawing to pain able to move her eyes spontaneously Later during today patient self extubated herself today and is back to baseline mental status Head CT was negative for hemorrhage, masses or midline shift CTA neck/head showed, No significant neck arterial stenoses, No cerebral large vessel arterial occlusions, 90% stenosis P2 segment right posterior cerebral artery Plan: ? Resume home antipsychotics ? Continue aspirin 81 mg p.o. daily #Hypertensive emergency resolved #Hypoosmolar hyponatremia, chronic #Schizoaffective disorder, patient history #Intellectual disability, patient history #Acute hypoxic respiratory failure resolved #Community-acquired pneumonia #Pulmonary edema improving #Hx of IBD - continue management per primary team Patient discussed with my attending Dr Erin Quezada MD PGY-3 Disclaimer: Despite multiple revisions, due to the dictation software being used, the document bellow may not be free of grammatical errors including phonetic/typographic errors. However, this does not deter from our commitment to providing health care in the patient's best interest in mind. Thank Attending Provider Attestation/Addendum Have seen and examined the patient at the bedside and I agree with the resident's findings, assessment and plan of care. Continue with the current management. Workup is limited.
--- NOTE | 2024-07-25 16:20 | PC.SS ---
Update: SS spoke to [facility] to update that patient would be ready to d/c over weekend.
[2024-07-25] MEDS: ARIPiprazole 5 MG TABLET 30 MG PO (20:26)
--- NOTE | 2024-07-25 23:38 | ECHO_ITS ---
Transthoracic Echo Report Ht (in): 66 Wt (lb): 135 Exam Location: Echo Lab Status: Inpatient Corporate Treasurer: Mae Steele Indications: Procedure Performed: BP: 110 / 55 HR: 62 Technical Quality: Technically difficult study MEASUREMENTS (Male / Female) Normal Values 2D ECHO LV Diastolic Diameter PLAX 3.9 cm 4.2 - 5.9 / 3.9 - 5.3 cm LV Systolic Diameter PLAX 2.4 cm IVS Diastolic Thickness 1.1 cm 0.6 - 1.0 / 0.6 - 0.9 cm LVPW Diastolic Thickness 1.0 cm 0.6 - 1.0 / 0.6 - 0.9 cm LV Relative Wall Thickness 0.5 LVOT Diameter 1.7 cm Aortic Root Diameter 2.4 cm LA Systolic Diameter LX 2.5 cm 3.0 - 4.0 / 2.7 - 3.8 cm LA Volume Index 16.0 cm?/m? 16 - 28 cm?/m? DOPPLER AV Peak Velocity 103.0 cm/s AV Peak Gradient 4.2 mmHg AV Mean Gradient 2.0 mmHg AV Velocity Time Integral 26.3 cm LVOT Peak Velocity 70.9 cm/s LVOT Peak Gradient 2.0 mmHg LVOT Velocity Time Integral 19.2 cm LVOT Cardiac Index 1599.2 cm?/min?m? AV Area Cont Eq vti 1.7 cm? AV Area Cont Eq pk 1.6 cm? MV Area PHT 2.6 cm? MR Peak Velocity 395.3 cm/s MR Peak Gradient 62.5 mmHg Mitral E Point Velocity 39.3 cm/s Mitral A Point Velocity 73.7 cm/s Mitral E to A Ratio 0.5 LV E' Lateral Velocity 4.3 cm/s Mitral E to LV E' Lateral Ratio 9.0 LV E' Septal Velocity 4.0 cm/s Mitral E to LV E' Septal Ratio 9.8 PV Peak Velocity 95.0 cm/s PV Peak Gradient 3.6 mmHg FINDINGS Left Ventricle Normal left ventricular size, systolic function with no obvious regional wall motion abnormalities. Mild LVH. Normal left ventricular diastolic filling pattern for age. The ejection fraction is visually estimated at 45- 50%. There is grade I diastolic dysfunction. Right Ventricle The right ventricle is normal in size and systolic function. Left Atrium The left atrium is normal by two-dimensional, color flow and Doppler imaging with no structural abnormalities, no thrombus formation present. Right Atrium The right atrium is normal by two-dimensional imaging, color flow and Doppler imaging with no structural abnormalities, no thrombus formation present. Atrial Septum The interatrial septum appears normal with no evidence of a shunt. Aorta The aorta is normal by two-dimensional, color flow and Doppler interrogation. Mitral Valve Mild mitral regurgitation. Aortic Valve The aortic valve is trileaflet and normal by two-dimensional, color flow and Doppler interrogation. There is no significant aortic valve regurgitation. Tricuspid Valve The tricuspid valve is normal by two-dimensional, color flow and Doppler interrogation. There is trace tricuspid valve regurgitation. Pulmonic Valve The pulmonic valve is not well visualized. There is no significant pulmonic valve regurgitation. Vessels The pulmonary artery appears normal. The inferior vena cava pulmonary and hepatic veins appear normal. Pericardium The pericardium is normal by two-dimensional imaging. There is no significant pericardial effusion. CONCLUSIONS Indication: Stroke rule out Suboptimal bubble study and appears negative. Consider DARRIN if high clinical index of suspicion. Normal LV size and function. Grade I diastolic dysfunction. Estimated EF 65-70%. RV is normal in size and systolic function. Mild MR and trace TR Bronson Goldberg (Electronically Signed) Final Date: 26 July 2024 09:35
[2024-07-26] VITALS: BP 91/53; PULSE 55; PULSE 60; RESP 16; TEMP 37; O2SAT 94
[2024-07-26] MEDS: hydrOXYzine HCL 25 MG TABLET 50 MG PO ×2 (01:33→08:30)
[2024-07-26 04:00] VITALS: BP 99/51; PULSE 52; PULSE 57; RESP 16; TEMP 36.8; O2SAT 97
[2024-07-26] MEDS: HEPARIN SOD INJ 5000 UNIT/ML VIAL SC (05:05)
[2024-07-26 06:27] LABS: Basophils % (Auto) 1 % (0-2.5); Eosinophils # (Auto) 0.1 Thou/mm3 (0.0-0.5); Eosinophils % (Auto) 1 % (0-10); Hematocrit 34.5 % (36.0-46.0); Hemoglobin 11.7 g/dL (12.0-16.0); Immature Granulocytes % (Auto) 1 % (0-0); Immature Granulocytes Auto 0.04 Thou/mm3 (0.00-0.00); Lymphocytes # (Auto) 2.8 Thou/mm3 (1.0-4.8); Lymphocytes % (Auto) 33 % (10-50); Mean Corpuscular HGB Conc 33.9 g/dl (31.0-37.0); Mean Corpuscular Hemoglobin 28.2 pg (25.0-35.0); Mean Corpuscular Volume 83 fL (80-100); Monocytes # (Auto) 0.7 Thou/mm3 (0.0-0.8); Monocytes % (Auto) 8 % (0-12); Neutrophils # (Auto) 4.9 Thou/mm3 (1.8-7.7); Neutrophils % (Auto) 58 % (37-80); Nucleated Red Blood Cell % 0 /100 WBC (0); Platelet Count 203 Thou/mm3 (140-440); RDW Standard Deviation 42.4 fL (36.4-46.3); Red Blood Count 4.15 Miln/mm3 (4.00-5.20); White Blood Count 8.5 Thou/mm3 (3.6-11.0)
[2024-07-26 06:39] LABS: Prothrombin Time 11.4 Seconds (9.0-12.2)
[2024-07-26 06:51] LABS: Alanine Aminotransferase 33 U/L (10-49); Albumin/Globulin Ratio 1.3 (1.2-2.2); Alkaline Phosphatase 77 U/L (46-116); Anion Gap 3 (7-16); Aspartate Amino Transferase 50 U/L (0-34); BUN/Creatinine Ratio 23 Ratio (12-20); Bilirubin,Total 0.3 mg/dL (0.3-1.2); Blood Urea Nitrogen 18 mg/dL (9-23); Calcium 8.3 mg/dL (8.3-10.6); Calcium (Corrected) 9.1 mg/dL (8.5-10.1); Carbon Dioxide 27.7 mMol/L (20.0-31.0); Chloride 101 mMol/L (98-107); Creatinine (Component) 0.8 mg/dL (0.6-1.3); Estimated Creatinine Clearance 72.6 mL/min (>60); Globulin 2.4 gm/dL (2.3-3.5); Glucose 80 mg/dL (74-106); Magnesium 1.8 mg/dL (1.6-2.6); Osmolality,Calculated 265 (275-295); Phosphorous 3.3 mg/dL (2.4-5.1); Potassium 4.2 mMol/L (3.4-5.1); Sodium 132 mMol/L (136-145); Total Protein 5.4 gm/dL (5.7-8.2); eGFR > 60 See Note
[2024-07-26 07:29] VITALS: PULSE 70; RESP 18; RESP 96
[2024-07-26 08:00] VITALS: BP 127/77; PULSE 62; PULSE 68; RESP 14; TEMP 36.3; O2SAT 95
[2024-07-26] MEDS: FLUoxetine HCL 10 MG CAPSULE 20 MG PO (08:27)
[2024-07-26] MEDS: ASPIRIN 81 MG CHEW PO (08:27)
[2024-07-26] MEDS: SODIUM CHLORIDE 1 GM TABLET PO (08:28)
[2024-07-26] MEDS: OXYBUTYNIN CHLOR 5 MG TABLET PO (08:28)
[2024-07-26] MEDS: FAMOTIDINE INJ 10 MG/ML VIAL 2 ML 20 MG IVP (08:29)
[2024-07-26] MEDS: DIVALPROEX SOD DR 500 MG TABLET.DR PO (08:30)
[2024-07-26] MEDS: cefTRIAXone/D5w 1gm IV premix 1 GM/50 ML BAG IV (08:44)
[2024-07-26] MEDS: POLYETHYLENE GLYCOL 17 GM PACKET PO (08:47)
[2024-07-26 12:00] VITALS: BP 94/65; PULSE 70; PULSE 79; RESP 16; TEMP 36.6; O2SAT 100
[2024-07-26 12:14] VITALS: BMI 21.8
--- NOTE | 2024-07-26 12:36 | PD.RESDS ---
Planned Discharge Date 07/26/24 DS: Providers Provider Date of admission: 07/23/24 23:36 Primary care physician: Segun Bray MD Admitting Provider: Raimundo Tompkins MD Attending Provider on Admission: Raimundo Tompkins MD Consults: 07/23/24 20:52 Consult to Neurology / Tele-Neurology Routine Comment: Consulting Provider: [facility] 07/23/24 23:45 Consult to Neurology / Tele-Neurology Stat Comment: stroke workup Consulting Provider: Dariusz Khan 07/24/24 12:54 Referral Speech Therapy Routine Comment: 07/25/24 07:31 Referral Speech Therapy Urgent Comment: Attending Provider on DC: Mayco Bhagat MD Discharging Provider: Dao Chan MD DS: Diagnosis Problem List Completed Was Problem List Reviewed/Reconciled?: Yes Hospital Course Hospital Course Hospital course: 59 year old female with PMH of schizoaffective disorder, mental disability, IBD presented to the ER for dizziness and hypoxia, was intubated due to altered mental status and hypoxia and admitted to ICU. The following day patient self extubated. On admission patient had hypertensive emergency with flash pulmonary edema on chest x-rays, both of which resolved without medications. Repeat chest x-ray showed resolution of pulmonary edema with possible community-acquired pneumonia, patient treated with antibiotics. Neurology was consulted, recommended resuming home antianxiety medications, patient did not require further workup. Echo showed grade 1 diastolic dysfunction, no signs of acute heart failure. Patient with significant improvement during hospital stay, returned to baseline per caregiver. Patient medically stable and cleared for discharge. Discharge plan: You have been started on the following medications: -Augmentin 875 twice daily for 4 days Please continue taking all medications as previously prescribed. Please follow with your primary doctor within 1-2 weeks. Please return to the ED if you develop new or worsening symptoms. Resume home propranolol, but please hold if heart rate below 60. Diagnoses: #Acute hypoxic respiratory failure, resolved #Community-acquired pneumonia #Pulmonary edema, improving #Acute encephalopathy (resolved) secondary to CVA versus hypoxia versus metabolic abnormality #Hypertensive emergency, resolved #Hypoosmolar hyponatremia, chronic #Schizoaffective disorder, patient history #Intellectual disability, patient history #Hx of IBD Plan of care discussed with attending Dr. Bhagat. Dao Chan MD PGY?1 Status at Discharge Overall status at discharge: patient is progressing back to baseline Time Spent with Patient Time attestation: Total time spent providing and/or coordinating discharge services: Time spent: Greater than 30 minutes Exam Vital Signs Temp Pulse Resp BP Pulse Ox O2 Del Method FiO2 97.8 F 79 16 94/65 100 Room Air 35 07/26/24 12:00 07/26/24 12:00 07/26/24 12:00 07/26/24 12:00 07/26/24 12:07/26/24 12:07/24/24 09:57 Narrative Exam PE: Gen: Well-developed and well-nourished. Poorly cooperative. HEENT: NCAT, PERRLA, EOMI, MMM, anicteric conjunctivae. CVS: normal S1 and S2. RRR. No M/R/G. Resp: Lungs clear to auscultation bilaterally. Abd: soft, non-tender, non-distended. MSK: Good ROM in BUE & BLE. No edema or rash. Neuro: CN II-XII grossly intact. Strength 5/5 in BUE & BLE. Alert and oriented x1, able to make needs known, baseline for patient. Discharge Plan Plan Patient Disposition: Xfer Skilled Nsg Fac (SNF) Patient condition on transfer: Stable Care Plan Goals: You have been started on the following medications: -Augmentin 875 twice daily for 4 days Please continue taking all medications as previously prescribed. Please follow with your primary doctor within 1-2 weeks. Please return to the ED if you develop new or worsening symptoms. Resume home propranolol, but please hold if heart rate below 60. Prescriptions/Referrals Prescriptions/Med Rec: New amoxicillin-pot clavulanate 875-125 mg tablet 1 tab PO BID 4 Days Qty: 8 0RF Continued divalproex 500 mg tablet,delayed release (DR/EC) 500 mg PO Q12H Linzess 145 mcg Capsule 145 mcg PO QDAY oxybutynin chloride 5 mg tablet 5 mg PO DAILY aripiprazole 15 mg tablet 30 mg PO HS propranolol 10 mg tablet 10 mg PO Q12H fluoxetine 20 mg capsule 20 mg PO DAILY Cobenfy 100-20 mg capsule 1 cap PO HS acetaminophen 325 mg Tablet 650 mg PO Q6H PRN (Reason: Mild pain or fever > 101F) hydroxyzine HCl 50 mg tablet 50 mg PO Q8H Referrals: Segun Bray MD [Primary Care Provider] - Patient/Caregiver Discharge Instructions Discharge Activity: activity as tolerated Education Materials: ED Pneumonia (Adult) Print Language: Kazakh Stand Alone Forms: Bianca Award Info., Patient Portal Info Letter Discharge Order Discharge Orders: Discharge (Routine); Ordered 07/26/24 Ordered By: Dao Chan Quality Discharge Quality Measures VTE prophylaxis MD Attestestation MD Attestation I reviewed labs, imaging, EKG, home medications and prior available records. Face to face evaluation was performed by me. I have personally examined the patient and discussed assessment and plan with the IM team. I reviewed the resident note and agree with the plan with exceptions as below. Acute hypoxic respiratory failure CVA symptoms Schizoaffective disorder Hypertensive emergency Continue p.o. Augmentin She is on room air Blood pressure is WNL Resume psych medications Time spent is 40 minutes. More than 50% of the time was spent on patient education and coordination of care.
[2024-07-28 08:21] LABS: Valporic Acid (Depak)* 64.3 mg/L (50.0-100.0)
== END 2024-07-26 13:45 | disposition skilled nursing facility (03) | DRG 208 ==
LOC: SERX 23:00 → SERHOLD 07-24 00:41 → S2SX 07-24 04:40 → S3NX 07-24 19:57
PROVIDERS: Psychiatry & Neurology Neurology; Student in an Organized Health Care Education/Training Program; Admitting Provider Internal Medicine; Emergency Provider Emergency Medicine; PCP Family Medicine; Visit Provider Internal Medicine
DX: J96.01 Acute respiratory failure with hypoxia (principal); I63.531 Cerebral infarction due to unspecified occlusion or stenosis of right posterior cerebral artery; G93.41 Metabolic encephalopathy; J18.9 Pneumonia, unspecified organism; J81.0 Acute pulmonary edema; E87.1 Hypo-osmolality and hyponatremia; I16.1 Hypertensive emergency; J81.1 Chronic pulmonary edema; F90.9 Attention-deficit hyperactivity disorder, unspecified type; F70 Mild intellectual disabilities; F25.9 Schizoaffective disorder, unspecified; I10 Essential (primary) hypertension; E87.6 Hypokalemia; Z78.1 Physical restraint status; Z79.82 Long term (current) use of aspirin; Z85.41 Personal history of malignant neoplasm of cervix uteri; Z92.21 Personal history of antineoplastic chemotherapy; R68.0 Hypothermia, not associated with low environmental temperature; R62.50 Unspecified lack of expected normal physiological development in childhood; W19.XXXA Unspecified fall, initial encounter; Z86.73 Personal history of transient ischemic attack (TIA), and cerebral infarction without residual deficits; R29.736 NIHSS score 36
CPT/HCPCS: 36415; 36600; 70450; 70496; 70498; 71045; 74018; 80053; 80061; 80069; 80164; 80307; 80320; 80329; 81001; 82140; 82550; 82803; 83036; 83605; 83735; 83880; 84100; 84145; 84439; 84443; 84484; 85025; 85379; 85610; 85652; 85730; 86140; 87040; 87081; 87086; 87205; 87400; 87502; 87811; 92610; 93005; 93225; 93306; 94002; 94003; 96361; 96365; 96366; 96367; 99291; A4649; J0330; J0692; J0696; J1643; J2543; J2704; J3371; J3490; J7030; J7050; Q9967; A9270; G0480; J1920

== ENCOUNTER 2024-07-27 21:49 | Emergency (ER) | payer MEDICARE, MEDICAID, SELFPAY ==
[2024-07-27 21:57] VITALS: BP 176/96; PULSE 67; RESP 18; TEMP 36.4; O2SAT 95
--- NOTE | 2024-07-27 21:57 | PD.EDWEAK ---
ED Weakness RME/HPI General Chief complaint: Altered Mental Status Stated complaint: ALTERED Arrival date/time: 07/27/24 21:49 RME / HPI RME / HPI Narrative: This section includes all my notes and documentations, including HPI, PE, and ED course. Abbe Kent MD HPI: 59 y/o female with Hx of Head Trauma, Schizophrenia, Attention Deficit Hyperactivity Disorder, Developmental Delay from [facility] home presents to ED c/o lethargy x approximately 30 minutes ago. Was hospitalized here and discharged yesterday. Diagnoses include Pneumonia. No other complaints. ROS: All negative except as documented in HPI. Physical Exam: General: Alert and oriented. No acute distress. Eyes: Conjunctivae and lids clear. EOMI. PERRL. ENT: No nasal congestion. Pharynx normal. Tympanic membrane normal bilaterally. Neck: Supple. No lymphadenopathy. No JVD. Heart: RRR. Lungs: No respiratory distress. Good air movement. No rhonchi, wheezing, rales. Chest: No tenderness. Abdomen: Soft and nontender. Normal bowel sounds. No distension. No rebound or guarding. Back: No CVA tenderness. Legs: No clubbing, cyanosis, edema. Skin: Warm and dry. Neuro: Alert and oriented X 3. Cranial Nerves II-XII grossly intact. No peripheral motor deficits. I reviewed EMS and jail notes. I reviewed all diagnostic test results. My interpretation of the EKG is sinus rhythm with no ST-T changes. My interpretation of the chest x-ray is: Extensive bilateral pneumonia. My review of the head CT report is NAD. My review of the chest CTA report is no PE. My review of the abdominal CT report is NAD. Blood tests unremarkable. At this point, diagnoses include Pneumonia. Treatment here included She remained stable. Recommended continued treatment recommended yesterday yesterday when she was discharged by Hospitalist Service, including ABX for pneumonia. Discharge Instructions from Dr. Kent printed for you: 1. After extensive evaluation, there is no immediately life-threatening condition. Such as stroke or brain tumor or heart attack or blood clots in the lungs. 2. Continue all medications and follow the instructions given to you when you were discharged here today before yesterday. Including the antibiotics for pneumonia. 3. See a private doctor on 07/29/2024 for recheck and further care. Ask to review all test results and official radiology reports, to make sure you receive all necessary follow-ups and monitoring. 4. Seek immediate medical care with worsening or with any concerns. Abbe Kent MD Related Data Home Medications ?Medication ?Instructions ?Recorded ?Confirmed divalproex 500 mg tablet,delayed 500 mg PO Q12H 09/15/18 07/24/24 release linaclotide 145 mcg capsule 145 mcg PO QDAY 07/29/19 07/24/24 (Linzess) oxybutynin chloride 5 mg tablet 5 mg PO DAILY 08/11/20 07/24/24 acetaminophen 325 mg tablet 650 mg PO Q6H PRN Mild pain or 07/24/24 07/24/24 fever > 101F aripiprazole 15 mg tablet 30 mg PO HS 07/24/24 07/24/24 fluoxetine 20 mg capsule 20 mg PO DAILY 07/24/24 07/24/24 hydroxyzine HCl 50 mg tablet 50 mg PO Q8H 07/24/24 07/24/24 propranolol 10 mg tablet 10 mg PO Q12H 07/24/24 07/24/24 xanomeline 100 mg-trospium 20 mg 1 cap PO HS 07/24/24 07/24/24 capsule (Cobenfy) Allergies Allergy/AdvReac Type Severity Reaction Status Date / Time No Known Allergies Allergy Verified 05/26/24 11:29 Review of Systems Review of Systems Systems Reviewed: All systems reviewed, normal except as documented Narrative Review of Systems: Refer to HPI above. Past Medical History Past Medical History NEUROLOGIC: Positive Neurological Disorders and Head Trauma GASTROINTESTINAL: Positive Gastrointestinal Disorders MUSCULOSKELETAL: Positive Musculoskeletal Disorders and Fractures ENT: Positive Head Trauma PSYCHO/SOCIAL: Positive Schizophrenia, Behavior Problems (schizoaffective disorder and ADHD) and Attention Deficit Hyperactivity Disorder OTHER HISTORY: Positive Developmental Delay and Falls Surgical History SURGICAL: Positive Open Reduction Internal Fixation and Hysterectomy ED Exam Narrative Physical exam: Refer to HPI above. Course Quality Measures none Orders Category Date Time Status CT Screening NOW Care 07/28/24 00:02 Completed EKG (ED ONLY) *Do not use* NOW Care 07/27/24 22:24 Completed Insert IV NOW Care 07/28/24 02:[address] abdomen pelvis w con Stat Exams 07/28/24 00:[address] angio chest Stat Exams 07/28/24 00:[address] head/brain wo con Stat Exams 07/27/24 22:25 Completed EKG (ED Only) Stat Exams 07/27/24 22:24 Draft XR chest 1V portable Stat Exams 07/27/24 22:24 Completed ABG [Arterial Blood Gas] Stat Lab 07/27/24 22:49 Completed BNP [B-Type Natriuretic Peptide] Stat Lab 07/27/24 23:15 Completed CBC Stat Lab 07/27/24 23:15 Completed CMP [Comprehensive Metabolic Panel] Stat Lab 07/27/24 23:15 Completed Free T4 (Free Thyroxine) Stat Lab 07/27/24 23:15 Completed Magnesium Stat Lab 07/27/24 23:15 Completed TSH [Thyroid Stimulating Hormone] Stat Lab 07/27/24 23:15 Completed Troponin I Stat Lab 07/27/24 23:15 Completed Vital Signs Vital signs: Vital Signs Temperature 97.5 F 07/27/24 21:57 Pulse Rate 67 07/27/24 21:57 Respiratory Rate 18 07/27/24 21:57 Blood Pressure 176/96 H 07/27/24 21:57 Pulse Oximetry (%) 95 07/27/24 21:57 Oxygen Delivery Method Room Air 07/27/24 21:57 Weakness MDM Narrative MDM Narrative:: Scribe Attestation: Elvira Alvarez am scribing for and in the presence of Dr. Kent. Provider Notation: Although this document has been carefully reviewed, there may still be some phonetic and other typographical errors. These errors are purely grammatical due to imperfections in the software program and should not be construed in any way to compromise the substance of the patient's medical care during this visit. 59 y/o female with Hx of Head Trauma, Schizophrenia, Attention Deficit Hyperactivity Disorder, Developmental Delay and Falls and SHx of Reduction Internal Fixation and Hysterectomy BIBA from shelter presents to ED c/o lethargy x approximately 30 minutes ago. Per EMS, patient is unresponsive unless to painful stimuli. Patient usual GCS of 14. Patient data External records reviewed:: [facility] previous records (Reviewed prior ED records from 07/23/2024. Patient was seen for altered mental status.) Clinical information provided by:: EMS Social determinants that could affect healthcare access:: housing Patient has the following chronic illnesses:: Head Trauma, Schizophrenia, Attention Deficit Hyperactivity Disorder, Developmental Delay and Falls How is presenting disease/condition affected by chronic disease/condition?: exacerbated by Evaluation data The following diagnostics were reviewed and interpreted by me:: radiology exam(s) and EKG tracing(s) (My interpretation of the EKG is: Sinus rhythm (70 bpm) with PACs and nonspecific ST-T changes. Abbe Kent MD) Lab and/or radiology exams considered but not ordered:: None Interpretation Summary: I reviewed all diagnostic test results. My interpretation of the EKG is sinus rhythm with no ST-T changes. My interpretation of the chest x-ray is: Extensive bilateral pneumonia. My review of the head CT report is NAD. My review of the chest CTA report is no PE. My review of the abdominal CT report is NAD. Blood tests unremarkable. Medications / Prescriptions Medications or Prescriptions considered but not ordered:: None Medication administrations:: None Consultations Consultation(s) initiated? (list below): No Diagnosis Weakness Differential Diagnosis: acute myocardial infarction, anemia, hypoglycemia, hypothyroidism, rhabdomyolysis, sepsis and dehydration Most likely diagnosis given after review of the tests above:: Pneumonia Admission Indicated Admission indicated?: not indicated (There was no indication for admission. ) Admission Request Was there a request for admission?: No Disposition Plan Disposition Plan: Discharge Discharge Attestation Discharge Attestation: The patient and all family members were given an opportunity to ask questions and understood the discharge instructions. Discharge instructions specifically effects, indications for sooner follow up or return to the emergency department, and the expected course of current diagnosis. Patient condition: Stable Discharge Plan Plan Patient Disposition: [place] [facility] [place] Prescriptions/Referrals Prescriptions/Med Rec: No Action divalproex 500 mg tablet,delayed release (DR/EC) 500 mg PO Q12H Linzess 145 mcg Capsule 145 mcg PO QDAY oxybutynin chloride 5 mg tablet 5 mg PO DAILY aripiprazole 15 mg tablet 30 mg PO HS propranolol 10 mg tablet 10 mg PO Q12H fluoxetine 20 mg capsule 20 mg PO DAILY Cobenfy 100-20 mg capsule 1 cap PO HS acetaminophen 325 mg Tablet 650 mg PO Q6H PRN (Reason: Mild pain or fever > 101F) hydroxyzine HCl 50 mg tablet 50 mg PO Q8H Referrals: Segun Bray MD [Primary Care Provider] - In 1 week Problem List Clinical Impression: Pneumonia Patient/Caregiver Discharge Instructions Discharge Activity: activity as tolerated Education Materials: ED Pneumonia (Adult) Additional Instructions: Discharge Instructions from Dr. Kent printed for you: 1. After extensive evaluation, there is no immediately life-threatening condition. Such as stroke or brain tumor or heart attack or blood clots in the lungs. 2. Continue all medications and follow the instructions given to you when you were discharged here today before yesterday. Including the antibiotics for pneumonia. 3. See a private doctor on 07/29/2024 for recheck and further care. Ask to review all test results and official radiology reports, to make sure you receive all necessary follow-ups and monitoring. 4. Seek immediate medical care with worsening or with any concerns. Print Language: Togolese Stand Alone Forms: Bianca Award Info., Patient Portal Info Letter
--- NOTE | 2024-07-27 22:24 | EKG_ITS ---
[facility] Test Date: 2024-07-27 Pat Name: LOUIS BLANCO Department: Room: - Gender: Female [employer] Miller: : 1965 Requested By: Abbe Vásquez Order Number: [id number] Reading MD: Abbe Vásquez Measurements Intervals [place] Rate: 70 P: 59 IN: 160 QRS: -24 QRSD: 86 T: 65 QT: 454 QTc: 492 Interpretive Statements SINUS RHYTHM WITH OCCASIONAL SUPRAVENTRICULAR PREMATURE COMPLEXES POSSIBLE LEFT ATRIAL ENLARGEMENT [-0.1mV P-WAVE IN V1/V2] BORDERLINE LEFT AXIS DEVIATION [QRS AXIS < -20] PROLONGED QT INTERVAL Compared to ECG 07/25/2024 16:36:26 Prolonged QT interval now present T-wave abnormality no longer present /store/S0/[id number]/ecg/[id number].pdf
--- NOTE | 2024-07-27 22:24 | XR_ITS ---
Examination: AP chest single view Technique one AP portable semiupright chest single view Exam date and time: July 27, 2024 10:50 AM Comparison July 24, 2024 Indications: Shortness of breath today. Findings: Extensive bilateral pneumonia Normal heart size The osseous structures are intact Impression: Extensive bilateral pneumonia
--- NOTE | 2024-07-27 22:25 | XR_ITS ---
Examination: CT brain head without contrast. 2-D sagittal coronal reconstructions Date and time of exam:July 27, 2024 1134 hrs. Indications: Altered mental status today Comparison: July 24, 2024 CTDI: vol (mGy):42 DLP: (mGycm):799 Technique: Multiple CT axial sections of the brain have been obtained, 5 mm slice thickness. Contrast has not been administered. 2-D sagittal, coronal reconstructions have been obtained Low dose protocols were performed. One or more of the following dose reduction techniques were used; automated exposure control, adjustment of the mA and/or KV according to patient size, use of iterative reconstruction technique. Findings: No significant ventricular enlargement. Intra-axial or extra-axial hemorrhage density is not seen. No mass effect or midline shift Basal cisterns are not remarkable. Fourth ventricle is midline. Cranial vault intact. Impression: Negative for acute hemorrhage, mass effect or midline shift Consider brain MRI follow-up, stroke protocol
[2024-07-27 22:33] VITALS: PULSE 69; RESP 20; O2SAT 96
[2024-07-27 22:58] LABS: Base Excess 5 (-3-3); HCO3 31 mEq/L (20-26); Inspired Oxygen, FIO2 21 %; O2 Saturation 83 % (91-98); PCO2 49 mmHg (32.0-48.0); pH, Arterial 7.41 (7.35-7.45)
[2024-07-27 23:25] LABS: Allen Test Performed/OK; PO2 47 mmHg (83-108); Puncture Site Right Radial
[2024-07-27 23:29] LABS: Basophils % (Auto) 0 % (0-2.5); Eosinophils # (Auto) 0.1 Thou/mm3 (0.0-0.5); Eosinophils % (Auto) 1 % (0-10); Hemoglobin 13.4 g/dL (12.0-16.0); Immature Granulocytes % (Auto) 1 % (0-0); Immature Granulocytes Auto 0.05 Thou/mm3 (0.00-0.00); Lymphocytes # (Auto) 2.2 Thou/mm3 (1.0-4.8); Lymphocytes % (Auto) 22 % (10-50); Mean Corpuscular HGB Conc 33.5 g/dl (31.0-37.0); Mean Corpuscular Hemoglobin 28.2 pg (25.0-35.0); Mean Corpuscular Volume 84 fL (80-100); Monocytes # (Auto) 0.7 Thou/mm3 (0.0-0.8); Monocytes % (Auto) 7 % (0-12); Neutrophils # (Auto) 6.8 Thou/mm3 (1.8-7.7); Neutrophils % (Auto) 69 % (37-80); Nucleated Red Blood Cell % 0 /100 WBC (0); Platelet Count 229 Thou/mm3 (140-440); RDW Standard Deviation 42.5 fL (36.4-46.3); Red Blood Count 4.76 Miln/mm3 (4.00-5.20); White Blood Count 9.9 Thou/mm3 (3.6-11.0)
[2024-07-27 23:48] LABS: B-Type Natriuretic Peptide 255 pg/mL (0-100)
[2024-07-27 23:53] LABS: Alanine Aminotransferase 26 U/L (10-49); Albumin, Serum 3.6 gm/dL (3.5-5.0); Albumin/Globulin Ratio 1.2 (1.2-2.2); Alkaline Phosphatase 94 U/L (46-116); Anion Gap 2 (7-16); Aspartate Amino Transferase 31 U/L (0-34); BUN/Creatinine Ratio 20 Ratio (12-20); Bilirubin,Total 0.3 mg/dL (0.3-1.2); Blood Urea Nitrogen 16 mg/dL (9-23); Calcium 8.9 mg/dL (8.3-10.6); Calcium (Corrected) 9.2 mg/dL (8.5-10.1); Carbon Dioxide 32.1 mMol/L (20.0-31.0); Chloride 99 mMol/L (98-107); Creatinine (Component) 0.8 mg/dL (0.6-1.3); Estimated Creatinine Clearance 69.8 mL/min (>60); Free T4 (Free Thyroxine) 0.79 ng/dL (0.89-1.76); Globulin 2.9 gm/dL (2.3-3.5); Glucose 132 mg/dL (74-106); Magnesium 1.9 mg/dL (1.6-2.6); Osmolality,Calculated 269 (275-295); Sodium 133 mMol/L (136-145); Thyroid Stimulating Hormone 3.85 uIU/mL (0.55-4.78); Total Protein 6.5 gm/dL (5.7-8.2); Troponin I 0.036 ng/mL (0.0-0.045); eGFR > 60 See Note
--- NOTE | 2024-07-28 00:02 | XR_ITS ---
Examination: CT abdomen with intravenous contrast CT pelvis with intravenous contrast 2-D coronal reconstructions 2-D sagittal reconstructions Date and time of exam:July 28, 2024 0313 hours INDICATIONS: Abdominal pain and shortness of breath today. CTDI: vol (mGy) 5.59 DLP: (mGycm) 322 Technique: Multiple axial sections of the abdomen and pelvis have been obtained. 64 slice high-resolution scanner used. 3 mm axial sections have been obtained, post intravenous injection 100 cc Isovue-370 2-D sagittal, coronal reconstructions obtained. Low dose protocols were performed. One or more of the following dose reduction techniques were used; automated exposure control, adjustment of the mA and/or KV according to patient size, use of iterative reconstruction technique. Findings: Bibasilar edema and/or pneumonia Small pleural effusions No focal liver or splenic lesions Definite edema throughout the stomach and involving the duodenum No gallstones No hydronephrosis Aorta normal size No bowel obstruction Abundant stool throughout the colon Normal appendix No pelvic mass Air in the urinary bladder Severe osteopenia IMPRESSION: Gastritis active peptic disease duodenum pattern Abundant stool throughout the colon Normal appendix Air in the urinary bladder, clinical correlation advised
--- NOTE | 2024-07-28 00:02 | XR_ITS ---
Examination: CTA chest with intravenous contrast 2-D reconstructions 3-D reconstructions, vascular Date and time of exam: July 28, 2024 0313 hours INDICATIONS: Chest pain shortness of breath today CTDI: vol (mGy) 6.85 DLP: (mGycm) 237 Technique: Multiple axial sections of the thorax have been obtained. 3 mm slice thickness, from below the hemidiaphragms to above the apices of the lungs. Mediastinal and lung density settings have been obtained. 2-D sagittal and coronal reconstructions. 3-D angiographic renderings, 3-D volume renderings, 3D post processing, vascular maximum intensity projections obtained. Contrast administered is 100 cc Isovue-370. Low dose protocols were performed. One or more of the following dose reduction techniques were used; automated exposure control, adjustment of the mA and/or KV according to patient size, use of iterative reconstruction technique. Findings: No thoracic aortic aneurysm dilatation Pulmonary artery segments are not enlarged No pulmonary artery emboli Mild to moderate enlargement cardiac contour with prominent vascular congestion and septal edema throughout the lungs with small pleural effusions Chronic osteoporotic compression T12 IMPRESSION: Prominent CHF Negative for pulmonary artery emboli
[2024-07-28 02:31] VITALS: PULSE 68; RESP 18; TEMP 37; O2SAT 97
--- NOTE | 2024-07-28 05:41 | PRELIM_ITS ---
CT angiogram of the chest with intravenous contrast (axial sections with sagittal and coronal reformats) July 28, 2024 0313 hours Clinical History: SOB Technique:Helical axial sections with sagittal and coronal reformats of the chest were obtained with intravenous contrast. Iterative reconstruction technique was employed to reduce patient radiation exposure. 3D/MIP reconstructed images were also provided. Comparison: No prior study is available for comparison. Findings: There is no filling defect within the pulmonary artery divisions to suggest pulmonary thromboembolism. The mediastinum demonstrates no evidence of mass or lymphadenopathy. The thoracic aorta is unremarkable. There is trace pericardial effusion. There is contrast reflux in the inferior vena cava and hepatic veins. There are diffuse ground-glass opacities and interstitial septal thickening in the bilateral lungs. There are small pleural effusions bilaterally. No evidence of pneumothorax. Degenerative changes are identified in the spine. There is a nonacute compression deformity of the T12 vertebra. Impression: No CT evidence of pulmonary thromboembolism. Findings consistent with acute alveolar pulmonary edema, likely of cardiogenic etiology. Small pleural effusions bilaterally, trace pericardial effusion, pulmonary edema and contrast reflux in the inferior vena cava and hepatic veins, of concern for fluid overload state or congestive heart failure. Please refer to the report on the abdomen and pelvis CT submitted separately. Report Electronically Signed By: Janice Lloyd 07/28/2024 5:41:07 AM [EST]
--- NOTE | 2024-07-28 05:43 | PRELIM_ITS ---
CT scan of the abdomen and pelvis with intravenous contrast (axial sections with sagittal and coronal reformats) July 28, 2024 0313 hours Clinical History: ABD PAIN Comparison: No prior study is available for comparison. Findings: The liver, gallbladder, pancreas, spleen, kidneys and adrenals are unremarkable. There is mild thickening of the wall of the stomach. Abundant fecal material is noted within the colon. No evidence of bowel obstruction. The appendix is within normal limits. There is no mesenteric or retroperitoneal adenopathy. There are small air loculi in the slightly thick-walled urinary bladder. The uterus and adnexa are unremarkable. Trace free fluid is seen in the pelvis. There is no free air. Degenerative changes are identified in the spine. There is a nonacute compression deformity of the T12 vertebra. The bones are osteopenic. Impression: No evidence of bowel obstruction, free air or abscess. Mild thickening of the wall of the stomach, In the appropriate clinical setting, the possibility of gastritis cannot be excluded. Small air loculi in the slightly thick-walled urinary bladder, which may represent recent intervention or cystitis. Recommend clinical correlation. Constipation?? Other findings as described above. Please refer to the report on the Chest CT submitted separately. Report Electronically Signed By: Janice Lloyd 07/28/2024 5:43:03 AM [EST]
[2024-07-28 06:09] VITALS: BP 127/92; PULSE 68; RESP 19; TEMP 36.6; O2SAT 94
== END 2024-07-28 06:15 | disposition skilled nursing facility (03) ==
PROVIDERS: Emergency Provider Emergency Medicine; PCP Family Medicine
DX: J18.9 Pneumonia, unspecified organism (principal)
CPT/HCPCS: 36415; 36600; 70450; 71045; 71275; 74177; 80053; 82803; 83735; 83880; 84439; 84443; 84484; 85025; 93005; 99284; A4649; Q9967

== ENCOUNTER → 2024-12-04 | Outpatient (CLI) | payer MEDICARE, MEDICAID, SELFPAY ==
[2024-12-04 08:49] LABS: Basophils # (Auto) 0.0 Thou/mm3 (0.0-0.2); Basophils % (Auto) 1 % (0-2.5); Eosinophils # (Auto) 0.1 Thou/mm3 (0.0-0.5); Eosinophils % (Auto) 2 % (0-10); Hematocrit 40.5 % (36.0-46.0); Hemoglobin 13.2 g/dL (12.0-16.0); Immature Granulocytes Auto 0.02 Thou/mm3 (0.00-0.00); Lymphocytes # (Auto) 1.8 Thou/mm3 (1.0-4.8); Lymphocytes % (Auto) 40 % (10-50); Mean Corpuscular HGB Conc 32.6 g/dl (31.0-37.0); Mean Corpuscular Hemoglobin 29.1 pg (25.0-35.0); Mean Corpuscular Volume 89 fL (80-100); Monocytes # (Auto) 0.4 Thou/mm3 (0.0-0.8); Monocytes % (Auto) 10 % (0-12); Neutrophils # (Auto) 2.1 Thou/mm3 (1.8-7.7); Neutrophils % (Auto) 47 % (37-80); Nucleated Red Blood Cell # 0.00 Thou/mm3 (0.00-0.00); Nucleated Red Blood Cell % 0 /100 WBC (0); Platelet Count 214 Thou/mm3 (140-440); RDW Standard Deviation 48.2 fL (36.4-46.3); Red Blood Count 4.53 Miln/mm3 (4.00-5.20); White Blood Count 4.5 Thou/mm3 (3.6-11.0)
[2024-12-04 09:20] LABS: Alanine Aminotransferase 8 U/L (10-49); Albumin, Serum 4.0 gm/dL (3.5-5.0); Albumin/Globulin Ratio 1.6 (1.2-2.2); Alkaline Phosphatase 122 U/L (46-116); Anion Gap 5 (7-16); Aspartate Amino Transferase 21 U/L (0-34); BUN/Creatinine Ratio 20 Ratio (12-20); Bilirubin,Total 0.4 mg/dL (0.3-1.2); Blood Urea Nitrogen 16 mg/dL (9-23); Calcium 9.7 mg/dL (8.3-10.6); Calcium (Corrected) 9.7 mg/dL (8.5-10.1); Carbon Dioxide 32.8 mMol/L (20.0-31.0); Cardiac Risk Estimate 2.2 RATIO (3.7-5.6); Chloride 99 mMol/L (98-107); Cholesterol 162 mg/dL (132-200); Creatinine (Component) 0.8 mg/dL (0.6-1.3); Globulin 2.5 gm/dL (2.3-3.5); Glucose 67 mg/dL (74-106); HDL Cholesterol 75 mg/dL (40-60); LDL Cholesterol,Calculated 77 mg/dL (0-130); Osmolality,Calculated 273 (275-295); Potassium 4.9 mMol/L (3.4-5.1); Sodium 137 mMol/L (136-145); Thyroid Stimulating Hormone 4.96 uIU/mL (0.55-4.78); Total Protein 6.5 gm/dL (5.7-8.2); Triglycerides 52 mg/dL (30-150); eGFR > 60 See Note
[2024-12-04 09:26] LABS: Glucose Estimated Average 105 mg/dL (80-131); Hemoglobin A1C 5.3 % Hgb (4.8-6.0)
[2024-12-09 07:10] LABS: Valporic Acid (Depak)* 78.8 mg/L (50.0-100.0)
== END | disposition home or self-care (01) ==
LOC: SLDO 08:07
PROVIDERS: Referring Provider Family Medicine; Visit Provider Family Medicine
DX: Z01.89 Encounter for other specified special examinations (principal)
CPT/HCPCS: 36415; 80053; 80061; 80164; 83036; 84443; 85025

== ENCOUNTER → 2025-03-09 | Outpatient (CLI) | payer MEDICARE, MEDICAID, SELFPAY ==
[2025-03-09 09:06] LABS: Basophils # (Auto) 0.0 Thou/mm3 (0.0-0.2); Basophils % (Auto) 1 % (0-2.5); Eosinophils # (Auto) 0.1 Thou/mm3 (0.0-0.5); Eosinophils % (Auto) 2 % (0-10); Hematocrit 39.2 % (36.0-46.0); Hemoglobin 12.8 g/dL (12.0-16.0); Immature Granulocytes Auto 0.03 Thou/mm3 (0.00-0.00); Lymphocytes # (Auto) 1.7 Thou/mm3 (1.0-4.8); Lymphocytes % (Auto) 40 % (10-50); Mean Corpuscular HGB Conc 32.7 g/dl (31.0-37.0); Mean Corpuscular Hemoglobin 29.9 pg (25.0-35.0); Mean Corpuscular Volume 92 fL (80-100); Monocytes # (Auto) 0.4 Thou/mm3 (0.0-0.8); Monocytes % (Auto) 10 % (0-12); Neutrophils # (Auto) 2.0 Thou/mm3 (1.8-7.7); Neutrophils % (Auto) 47 % (37-80); Nucleated Red Blood Cell # 0.00 Thou/mm3 (0.00-0.00); Nucleated Red Blood Cell % 0 /100 WBC (0); Platelet Count 210 Thou/mm3 (140-440); RDW Standard Deviation 45.4 fL (36.4-46.3); Red Blood Count 4.28 Miln/mm3 (4.00-5.20); White Blood Count 4.3 Thou/mm3 (3.6-11.0)
[2025-03-09 09:14] LABS: Alanine Aminotransferase 17 U/L (10-49); Albumin, Serum 4.2 gm/dL (3.5-5.0); Albumin/Globulin Ratio 1.6 (1.2-2.2); Alkaline Phosphatase 110 U/L (46-116); Anion Gap 6 (7-16); Aspartate Amino Transferase 29 U/L (0-34); BUN/Creatinine Ratio 23 Ratio (12-20); Bilirubin,Total 0.2 mg/dL (0.3-1.2); Blood Urea Nitrogen 16 mg/dL (9-23); Calcium 9.4 mg/dL (8.3-10.6); Calcium (Corrected) 9.4 mg/dL (8.5-10.1); Carbon Dioxide 35.1 mMol/L (20.0-31.0); Chloride 100 mMol/L (98-107); Creatinine (Component) 0.7 mg/dL (0.6-1.3); Globulin 2.6 gm/dL (2.3-3.5); Glucose 74 mg/dL (74-106); Osmolality,Calculated 281 (275-295); Potassium 5.0 mMol/L (3.4-5.1); Sodium 141 mMol/L (136-145); Total Protein 6.8 gm/dL (5.7-8.2); eGFR > 60 See Note
[2025-03-13 06:19] LABS: Valporic Acid (Depak)* 69.0 mg/L (50.0-100.0)
== END | disposition home or self-care (01) ==
LOC: SLDO 08:09
PROVIDERS: PCP Family Medicine; Referring Provider Family Medicine; Visit Provider Family Medicine
DX: F25.0 Schizoaffective disorder, bipolar type (principal)
CPT/HCPCS: 36415; 80053; 80164; 85025